=== PATIENT | female | born 1970 | race Caucasian/White ===

== ENCOUNTER 2019-07-25 17:39 | Emergency (ER) | payer BC, SELFPAY ==
[2019-07-25 17:54] VITALS: BP 172/119; PULSE 110; RESP 20; TEMP 37.1; O2SAT 99
--- NOTE | 2019-07-25 18:19 | ECG_ITS ---
Measurements Intervals [place] Rate: 104 P: 43 WA: 107 QRS: 34 QRSD: 102 T: 10 QT: 364 QTc: 481 Interpretive Statements SINUS TACHYCARDIA WITH SHORT WA INTERVAL ABNORMAL ECG Electronically Signed On 07-26-2019 8:41:25 EXTERMINATOR HELPER TERMITE by Praveen Reyna D.O.
--- NOTE | 2019-07-25 18:30 | PC.NURSE ---
Pt states she is not feeling well. States she is dizzy and nauseated at this time. Requesting to have blood sugar checked at this time.
[2019-07-25] MEDS: ACETAMINOPHEN 500 MG TABLET 1000 MG PO (18:32)
[2019-07-25 18:37] LABS: Basophils Absolute Auto 0.04 K/mm3 (0.00-0.10); Basophils Percent Auto 0.7 % (0.0-1.0); Eosinophils Absolute Auto 0.22 K/mm3 (0.02-0.50); Eosinophils Percent Auto 3.8 % (1.0-6.0); Hematocrit 40.5 % (35.0-49.0); Immature Granulocyte Absolute 0.01 K/mm3 (0.00-0.00); Immature Granulocyte Percent A 0.2 % (0.0-0.0); Lymphocytes Absolute Auto 2.37 K/mm3 (1.10-4.50); Lymphocytes Percent Auto 40.8 % (18.0-42.0); Mean Corpuscular HGB Conc 34.6 g/dL (32.0-36.0); Mean Corpuscular Hemoglobin 31.3 pg (27.0-31.0); Mean Corpuscular Volume 90.6 fL (78.0-102.0); Mean Platelet Volume 9.2 fl (9.2-11.8); Monocytes Absolute Auto 0.41 K/mm3 (0.10-0.90); Monocytes Percent Auto 7.1 % (2.0-11.0); Neutrophils Absolute Auto 2.8 K/mm3 (1.7-7.2); Neutrophils Percent Auto 47.4 % (50.0-70.0); Platelet Count Result 327 K/mm3 (150-420); Red Blood Count 4.47 M/mm3 (4.20-5.40); Red Cell Distribution Width 12.2 % (11.6-14.4); White Blood Count 5.8 K/mm3 (4.8-10.8)
--- NOTE | 2019-07-25 18:40 | PC.NURSE ---
Acctosin 63. Dr Ramirez aware. [place] juice provided to pt.
[2019-07-25 18:45] VITALS: BP 208/113; PULSE 107; RESP 20
[2019-07-25] MEDS: TRIAMTERENE 37.5 MG/HCTZ 25 MG (MAXZIDE) TABLET 1 TAB PO (18:48)
[2019-07-25 18:49] VITALS: PULSE 105
[2019-07-25] MEDS: METOPROLOL SUCCINATE EXT REL 50 MG TABCR 100 MG PO (18:49)
--- NOTE | 2019-07-25 18:50 | PC.NURSE ---
Pt states she is feeling better after drinking OJ. [place] and cottage cheese provided per Dr James blanco.
[2019-07-25 18:56] LABS: Anion Gap 16.5 mmol/L (7-16); Blood Urea Nitrogen 7 mg/dL (7-18); Calcium 9.6 mg/dL (8.5-10.1); Carbon Dioxide 26 mmol/L (21-32); Chloride 102 mmol/L (98-108); Estimated Glomerular Filt Rate > 60; Glucose 81 mg/dL (70-99); Osmolality Calculated 289 mOsm/kg (285-295); Potassium 3.5 mmol/L (3.5-5.1); Sodium 141 mmol/L (136-145); Troponin I < 0.02 ng/mL (0.00-0.056)
[2019-07-25 18:57] LABS: BNP 6.9 pg/mL (0-100)
--- NOTE | 2019-07-25 19:00 | PC.NURSE ---
Dr Ramirez aware of persistent elevated BP.
--- NOTE | 2019-07-25 19:14 | ED.GENADULT ---
HPI - General Adult General Chief complaint: Unspecified Stated complaint: sent from [facility] for blood pressure History of Present Illness HPI narrative: Lakia is a 49-year-old woman that was referred to the emergency department by her regular doctor for persistently elevated pressures. she has had blood pressures greater than 180/100 for the last 3 weeks despite taking lisinopril 20 mg b.i.d. and metoprolol 25 mg q.h.s. She does admit a couple episodes of near syncope and headache. However, she denies chest pain, shortness of breath, exercise intolerance, nausea, vomiting, as well as fevers and chills. her primary care doctor increased her metoprolol to 100 mg q.h.s. a and ordered triamterene/ HCTZ but thought still thought she should be evaluated in the emergency department. while here she does endorse the headache and feels run down. She reports that she regularly takes combined oral contraceptive pills as well as clear today. Related Data Home Medications Medication Instructions Recorded Confirmed amoxicillin-pot clavulanate 1 tablet PO BID 07/25/19 07/25/19 fluticasone furoate-vilanterol 1 inh INHALATION DAILY 07/25/19 07/25/19 [Breo Ellipta] insulin aspart U-100 [Novolog 4 unit SUBCUT TIDWM 07/25/19 07/25/19 Flexpen U-100 Insulin] insulin glargine [Lantus Solostar 44 unit SUBCUT HS 07/25/19 07/25/19 U-100 Insulin] lisinopril 20 mg PO BID 07/25/19 07/25/19 loratadine-pseudoephedrine 1 tablet PO DAILY 07/25/19 07/25/19 [Claritin-D 24 Hour] metoprolol succinate 100 mg PO HS 07/25/19 07/25/19 montelukast 10 mg PO DAILY 07/25/19 07/25/19 norethindrone-e.estradiol-iron 1 tablet PO DAILY 07/25/19 07/25/19 [Celestino Fe 06/25 (28)] pantoprazole 40 mg PO BID 07/25/19 07/25/19 triamterene-hydrochlorothiazid 1 cap PO DAILY 07/25/19 07/25/19 Allergies Allergy/AdvReac Type Severity Reaction Status Date / Time Penicillins Allergy Swelling Verified 07/25/19 18:24 of Lip/Tongue/Throat Review of Systems Constitutional: Constitutional: Reports as per HPI, Denies chills and Denies fever(s) Eyes: Eyes: Denies change in vision ENT: Denies sore throat Cardiovascular: Cardiovascular: Denies chest pain, Reports rapid heart rate and Denies radiating jaw, neck or arm pain Respiratory: Respiratory: Reports no additional respiratory complaints Gastrointestinal: Gastrointestinal: Reports no additional gastrointestinal complaints Genitourinary: Genitourinary: Reports no additional female genitourinary complaints Musculoskeletal: Musculoskeletal: Reports no additional musculoskeletal complaints Neurologic: Denies confusion, Reports headache(s) and Denies focal weakness Psychiatric: Psychiatric: Reports no additional psychiatric complaints [facility] Past Medical History Medical History (Updated 07/25/19 @ 20:32 by Luciano Ramirez DO) Diabetes Hypertension Social History Social History Gender identity (if verbalized by the patient): Female Exam Const: General: healthy appearing, no acute distress and alert; No confusion Nutritional Appearance: well nourished Orientation/consciousness: patient oriented x3 Limitations: No altered mental status HENMT: Head: normal to inspection Other: trouble cephalic, atraumatic Eyes: Conjunctivae: conjunctivae normal Pupils: Equal, round and reactive pupils present EOM: EOMs intact bilaterally Neck: Neck: normal visual inspection Resp: Effort & Inspection: normal respiratory effort Auscultation: clear to auscultation bilaterally Cardio: Heart sounds: no murmurs Other: tachycardia with regular rhythm, no lower extremity edema GI: GI Palp: Yes Soft to palpation and Yes Tenderness to palpation present (GI) Other: Normal bowel sounds Skin: General skin exam: normal color Rashes: no rashes Neuro: General: patient oriented x3 and moves all extremities Extrem: General: normal to inspection P
[2019-07-25 19:23] VITALS: BP 185/105; PULSE 98; RESP 20; O2SAT 100
--- NOTE | 2019-07-25 19:48 | PC.NURSE ---
Dr Ramirez at bedside.
--- NOTE | 2019-07-25 20:00 | PC.NURSE ---
Dr Ramirez remains aware of elevated BP.
[2019-07-25 20:03] VITALS: BP 181/106; PULSE 97; RESP 20; O2SAT 97
--- NOTE | 2019-07-25 20:12 | PC.NURSE ---
Headache 4/10 prior to giving Oxycodone as ordered for pain. Will continue to monitor.
[2019-07-25 20:36] VITALS: BP 183/105; PULSE 98; RESP 20; O2SAT 99
--- NOTE | 2019-07-25 20:37 | PC.NURSE ---
Dr Ramirez at bedside at this time.
[2019-07-27 00:57] LABS: Glucose Point of Care 63 (65-105)
== END 2019-07-25 20:46 | disposition home or self-care (01) ==
PROVIDERS: Emergency Provider Family Medicine; PCP Internal Medicine
DX: I16.0 Hypertensive urgency (principal)
CPT/HCPCS: 36415; 80048; 83880; 84484; 85025; 93005; 99282; 99284; A9270

== ENCOUNTER 2020-02-26 16:14 | Outpatient (CLI) | payer BC, SELFPAY ==
[2020-02-28 20:38] LABS: FSH 28.2 mIU/mL (***)
[2020-03-04 17:41] LABS: Estradiol, Ultrasensitive 42 pg/mL
== END 2020-02-26 16:15 | disposition home or self-care (01) ==
LOC: CHSLAB 16:17
PROVIDERS: PCP Internal Medicine; Visit Provider Obstetrics & Gynecology
DX: R61 Generalized hyperhidrosis (principal)
CPT/HCPCS: 36415; 82670; 83001

== ENCOUNTER 2020-03-29 08:41 | Outpatient (CLI) | payer BC, SELFPAY ==
[2020-03-29 09:01] LABS: Creatinine Urine 93.31 mg/dL (40-278); MALB Creatinine Ratio 13.9 mg/g (0-30); Microalbumin Urine Random < 13.0 mg/L
[2020-03-29 09:29] LABS: Hemoglobin A1C 7.6 % (<5.7)
[2020-03-29 10:07] LABS: Alanine Aminotransferase 31 U/L (14-59); Albumin Level 3.9 g/dL (3.4-5.0); Alkaline Phosphatase 100 U/L (46-116); Anion Gap 9 mmol/L (8-16); Aspartate Amino Transferase 20 U/L (15-37); Bilirubin,Total 0.7 mg/dL (0.00-1.00); Blood Urea Nitrogen 10 mg/dL (7-18); Calcium 9.2 mg/dL (8.5-10.1); Carbon Dioxide 28 mmol/L (21-32); Chloride 101 mmol/L (98-108); Cholesterol 210 mg/dL (0-200); Estimated Glomerular Filt Rate > 60; Glucose 90 mg/dL (70-99); HDL Direct 74 mg/dL (40-60); LDL Cholesterol Calculated 128 mg/dL (<130); Osmolality Calculated 285 mOsm/kg (285-295); Potassium 3.9 mmol/L (3.5-5.1); Sodium 138 mmol/L (136-145); Total Protein 7.1 g/dL (6.4-8.2); Triglycerides 39 mg/dL (0-150)
== END 2020-03-29 08:42 | disposition home or self-care (01) ==
LOC: CHSLAB 08:42
PROVIDERS: PCP Internal Medicine; Visit Provider Internal Medicine
DX: E78.2 Mixed hyperlipidemia (principal); E11.65 Type 2 diabetes mellitus with hyperglycemia
CPT/HCPCS: 36415; 80053; 80061; 82043; 83036

== ENCOUNTER 2020-04-15 10:48 | Outpatient (CLI) | payer BC, SELFPAY ==
[2020-04-16 14:12] LABS: SARS-CoV-2 RNA PCR Negative
== END 2020-04-15 10:49 | disposition home or self-care (01) ==
LOC: CHSLAB 10:54
PROVIDERS: PCP Internal Medicine; Visit Provider Internal Medicine
DX: Z20.828 Contact with and (suspected) exposure to other viral communicable diseases (principal)
CPT/HCPCS: 87635; C9803; U0003

== ENCOUNTER 2020-07-21 07:12 | Outpatient (CLI) | payer BC, SELFPAY ==
--- NOTE | ~2020-07-21 | MM_ITS ---
EXAMINATION: MM screening betsy BI w desirae HISTORY: Screening TECHNIQUE: Craniocaudal and mediolateral oblique 3-D tomosynthesis images were obtained and synthetic 2-D images were generated. CAD analysis was submitted and interpreted. COMPARISON: Comparison to multiple prior studies sequentially, with oldest reviewed study dated 12/20. BREAST PARENCHYMAL COMPOSITION: The breasts are heterogenously dense, which may obscure small masses FINDINGS: There is a new focal asymmetry in the lower inner quadrant of the left breast. The right br east is stable without evidence for malignancy. IMPRESSION: 1. Focal asymmetry lower inner quadrant of the left breast. 2. Additional mammographic views and possible breast ultrasound are recommended. BI-RADS Category 0: Incomplete: Needs additional imaging evaluation. Reviewed, dictated and finalized at location A. NG FLUID TENDER IMPRESSION: 1. Focal asymmetry lower inner quadrant of the left breast. 2. Additional mammographic views and possible breast ultrasound are recommended . BI-RADS Category 0: Incomplete: Needs additional imaging evaluation.
== END 2020-07-21 07:13 | disposition home or self-care (01) ==
LOC: CHSIMG 07:14
PROVIDERS: PCP Internal Medicine; Visit Provider Obstetrics & Gynecology
DX: Z12.31 Encounter for screening mammogram for malignant neoplasm of breast (principal)
CPT/HCPCS: 77063; 77067

== ENCOUNTER 2020-07-29 09:03 | Outpatient (CLI) | payer BC, SELFPAY ==
--- NOTE | ~2020-07-29 | MMUS_ITS ---
EXAMINATION: MM diagnostic betsy LT w desirae, US breast LT limited HISTORY: Left breast mass on screening mammogram TECHNIQUE: Additional 3-D tomosynthesis images of the left breast were performed and synthetic 2-D im ages were generated. CAD analysis was submitted and interpreted. High resolution limited left breast ultrasound was performed. COMPARISON: 05/20/2021, 06/20/2017, 03/18/2016 FINDINGS: MAMMOGRAPHIC FINDINGS: There is a 10 mm obscured, oval, equal density mass in the posterior third of inner breast at the 9:0 0 location 10 cm from the nipple. No suspicious calcification or architectural distortion are identif ied. ULTRASOUND: There is a 6 mm x 2 mm oval, circumscribed, parallel, hypoechoic mass with no posterior features or i nternal vascularity at the 8:00 location 6 cm from the nipple. IMPRESSION: 1. Probably benign left breast mass. 2. Recommend 6 month follow-up left diagnostic mammogram and ultrasound. BI-RADS category 3, probably benign findings. Reviewed, dictated and finalized at location A. AND FRAMES PRESCRIPTION CLERK IMPRESSION: 1. Probably benign left breast mass. 2. Recommend 6 month follow-up left diagnostic mammogram and ultrasound. BI-RADS category 3, probably benign findings.
== END 2020-07-29 09:04 | disposition home or self-care (01) ==
PROVIDERS: PCP Internal Medicine; Visit Provider Obstetrics & Gynecology
DX: R92.8 Other abnormal and inconclusive findings on diagnostic imaging of breast (principal)
CPT/HCPCS: 76642; 77061; 77065; G0279

== ENCOUNTER 2020-08-13 16:42 | Outpatient (CLI) | payer BC, SELFPAY ==
--- NOTE | ~2020-08-13 | XR_ITS ---
[XR ribs LT 2V ] INDICATION: Left lower rib pain and swelling TECHNIQUE: Frontal projection of the upper left ribs, frontal projection of the lower left ribs, obli que projection of all the left ribs, frontal inspiratory chest x-ray for interpretation. FINDINGS: There are no displaced rib fractures identified. There are no soft tissue abnormality see n. The lungs are clear. IMPRESSION: 1:No displaced rib fractures. Reviewed, dictated and finalized at location A. L PREPAREDNESS OFFICER
== END 2020-08-13 16:43 | disposition home or self-care (01) ==
LOC: CHSLAB 16:43
PROVIDERS: PCP Internal Medicine; Visit Provider Internal Medicine
DX: R07.81 Pleurodynia (principal); R79.89 Other specified abnormal findings of blood chemistry
CPT/HCPCS: 71100

== ENCOUNTER 2020-08-15 14:22 | Emergency (ER) | payer BC, SELFPAY ==
--- NOTE | ~2020-08-15 | CT_ITS ---
EXAMINATION: CTA chest PE abdomen pel DATE: 08/15/2020 17:14 CLIENT EXPERIENCE ADMINISTRATOR INDICATION: Possible malignancy. Left rib pain. Nausea. Abdominal fullness. History of lumbar surgery . TECHNIQUE: Computed tomographic angiography (CTA) of the chest, abdomen, and pelvis was performed wit hout and with 100 mL Omnipaque-350 intravenous contrast. The dose-length product was 760.77 mGy-cm. M aximum intensity projection 3D-reconstructions of the aorta and other arteries were constructed by sandra adorno technologist on a separate workstation. Automated exposure control and iterative reconstruction xu hnique were employed. COMPARISON: CT abdomen dated 03/29/2019 FINDINGS: CHEST CTA: Study is technically adequate without evidence for pulmonary embolism. No evidence for aortic aneurys m or dissection. No thoracic lymphadenopathy. No endobronchial lesions. No pneumothorax. No suspiciou s pulmonary nodules or masses. ABDOMEN AND PELVIS CTA: The liver, spleen, pancreas, adrenal glands are unremarkable. Small low-density lesions in both kidne ys, likely benign cysts. No lymphadenopathy. No significant vascular abnormality. No lymphadenopathy. Gallbladder is present. Nonobstructive bowel gas pattern. Normal appendix. No abnormal pelvic masses or fluid collections. No free air or free fluid. No evidence for aortic aneurysm or dissection. The celiac axis, SMA and renal arteries are widely patent. Tiny fat-containing umbilical hernia. IMPRESSION: 1. No acute abnormality of the chest, abdomen or pelvis. No findings to account for patient's symptom s. Reviewed, dictated and finalized at location A. NT EXPERIENCE ADMINISTRATOR IMPRESSION: 1. No acute abnormality of the chest, abdomen or pelvis. No findings to account for patient's symptoms.
[2020-08-15 14:25] VITALS: BP 170/93; PULSE 91; RESP 14; TEMP 36.6; O2SAT 100
[2020-08-15 15:56] LABS: Basophils Absolute Auto 0.05 K/mm3 (0.00-0.10); Basophils Percent Auto 0.8 % (0.0-1.0); Eosinophils Absolute Auto 0.19 K/mm3 (0.02-0.50); Eosinophils Percent Auto 2.9 % (1.0-6.0); Hemoglobin 13.8 g/dL (12.0-15.0); Immature Granulocyte Absolute 0.02 K/mm3 (0.00-0.00); Immature Granulocyte Percent A 0.3 % (0.0-0.0); Lymphocytes Absolute Auto 2.38 K/mm3 (1.10-4.50); Lymphocytes Percent Auto 36.6 % (18.0-42.0); Mean Corpuscular HGB Conc 33.7 g/dL (32.0-36.0); Mean Corpuscular Hemoglobin 31.4 pg (27.0-31.0); Mean Corpuscular Volume 93.2 fL (78.0-102.0); Mean Platelet Volume 9.2 fl (9.2-11.8); Monocytes Absolute Auto 0.51 K/mm3 (0.10-0.90); Monocytes Percent Auto 7.8 % (2.0-11.0); Neutrophils Absolute Auto 3.4 K/mm3 (1.7-7.2); Neutrophils Percent Auto 51.6 % (50.0-70.0); Platelet Count Result 321 K/mm3 (150-420); Red Cell Distribution Width 12.5 % (11.6-14.4); White Blood Count 6.5 K/mm3 (4.8-10.8)
[2020-08-15 15:57] LABS: Add Urine Microscopic? NO; Appearance Urine Clear (Clear); Bilirubin Urine Negative (Negative); Blood Urine Negative (Negative); Color Urine Yellow (Yellow); Glucose Urine UA Negative (Negative); Ketones Urine Negative (Negative); Leukocyte Esterase Ur Negative (Negative); Nitrate Urine Negative (Negative); Protein Urine Negative (Negative); Urobilinogen Urine 0.2 mg/dL (0.2-1.0); pH Urine 5.5 (5.0-8.0)
[2020-08-15 16:11] LABS: Alanine Aminotransferase 28 U/L (14-59); Albumin Level 4.1 g/dL (3.4-5.0); Alkaline Phosphatase 87 U/L (46-116); Anion Gap 10 mmol/L (8-16); Aspartate Amino Transferase 17 U/L (15-37); Bilirubin,Total 0.8 mg/dL (0.00-1.00); Blood Urea Nitrogen 9 mg/dL (7-18); Calcium 9.8 mg/dL (8.5-10.1); Carbon Dioxide 29 mmol/L (21-32); Chloride 99 mmol/L (98-108); Estimated CRCL calculation 64 ml/min; Estimated Glomerular Filt Rate > 60; Glucose 84 mg/dL (70-99); Osmolality Calculated 283 mOsm/kg (285-295); Potassium 3.6 mmol/L (3.5-5.1); Sodium 138 mmol/L (136-145); Total Protein 7.9 g/dL (6.4-8.2)
[2020-08-15 16:16] LABS: Lactic Acid Reflex 0.5 mmol/L (0.4-2.0)
--- NOTE | 2020-08-15 17:14 | ED.ABDPAIN ---
HPI - Abdominal Pain General Chief Complaint: Abdominal Pain Stated Complaint: abd pain and pressure pusing ribs out Time Seen by Provider: 08/15/20 14:50 Source: patient and family Mode of arrival: ambulatory Limitations: no limitations History of Present Illness HPI narrative: Patient states ribs are displaced on the left at the base of the lung. She has had increasing pain on the lower left anterior ribs over the past few days she says. These ribs have been tender to touch, and have been associated with sharp pain at times there locally. Pain has been moderately severe to severe, and typically does not last lopng but is rather sharp and fleeting. MD elicited complaint: abdominal pain Pertinent past history: other (DM type I patient says. ) Onset (ago): month(s) Pain Consistency: intermittent Location: diffuse Severity: moderate Pain scale (0-10): 5 Quality: stabbing Radiation: RUQ Migration to: other (diffuse) Exacerbating factors: eating Relieving factors: bowel movement and other (voinding) Associated symptoms: nausea Treatments prior to arrival: other (Tylenol) Related Data Home Medications Medication Instructions Recorded Confirmed fluticasone furoate-vilanterol 1 inh INHALATION DAILY 07/25/19 08/15/20 [Breo Ellipta] insulin aspart U-100 [Novolog 4 unit SUBCUT TIDWM 07/25/19 08/15/20 Flexpen U-100 Insulin] insulin glargine [Lantus Solostar 44 unit SUBCUT HS 07/25/19 08/15/20 U-100 Insulin] lisinopril 20 mg PO BID 07/25/19 08/15/20 loratadine-pseudoephedrine 1 tablet PO DAILY 07/25/19 08/15/20 [Claritin-D 24 Hour] metoprolol succinate 100 mg PO HS 07/25/19 08/15/20 montelukast 10 mg PO DAILY 07/25/19 08/15/20 norethindrone-e.estradiol-iron 1 tablet PO DAILY 07/25/19 08/15/20 [Celestino Fe 06/25 ()] pantoprazole 40 mg PO BID 07/25/19 08/15/20 triamterene-hydrochlorothiazid 1 cap PO DAILY 07/25/19 08/15/20 Allergies Allergy/AdvReac Type Severity Reaction Status Date / Time Penicillins Allergy Swelling Verified 10/16/19 08:48 of Lip/Tongue/Throat Review of Systems Constitutional: Constitutional: Reports no additional constitutional complaints Eyes: Eyes: Reports no additional eye complaints ENT: Reports system reviewed and no additional complaints, except as documented Cardiovascular: Cardiovascular: Reports no additional cardiovascular complaints Respiratory: Respiratory: Reports no additional respiratory complaints Gastrointestinal: Gastrointestinal: Reports no additional gastrointestinal complaints Genitourinary: Genitourinary: Reports no additional female genitourinary complaints Musculoskeletal: Musculoskeletal: Reports no additional musculoskeletal complaints Integumentary/Breasts: Skin/Breast: Reports system reviewed and no additional complaints, except as docu Neurologic: Reports system reviewed and no additional complaints, except as documented Psychiatric: Psychiatric: Reports no additional psychiatric complaints Endocrine: Endocrine: Reports no additional endocrine complaints Hematologic/Lymphatic: Hematologic/Lymphatic: Reports no additional hematologic/lymphatic complaints Allergic/Immunologic: Allergic/Immunologic: Reports no additional allergic/immunologic complaints PMFSH Past Medical History Medical History Carpal tunnel syndrome delivery affecting delivery delivered Diabetes Hypertension Post endometrial ablation syndrome Family History Family History (Updated 08/16/20 @ 02:02 by Roger Cuellar MD) Father Cerebrovascular accident Mother Hypertension Social History Social History (Updated 08/16/20 @ 02:02 by Roger Cuellar MD) Smoking status: Never smoker Alcohol intake: never Gender identity (if verbalized by the patient): Female Exam Const: General: no acute distress Orientation/consciousness: patient oriented x3 HENMT: Head: normal to inspection
[2020-08-15 17:42] VITALS: BP 160/96; RESP 14; O2SAT 98
== END 2020-08-15 17:45 | disposition home or self-care (01) ==
PROVIDERS: Emergency Provider Emergency Medicine; PCP Internal Medicine
DX: R07.89 Other chest pain (principal)
CPT/HCPCS: 36415; 71275; 74177; 80053; 81003; 83605; 85025; 99282; 99284; Q9967

== ENCOUNTER 2021-03-27 08:43 | Outpatient (CLI) | payer BC, SELFPAY ==
--- NOTE | ~2021-03-27 | MMUS_ITS ---
EXAMINATION: MM diagnostic betsy LT w desirae, US breast LT limited HISTORY: Six-month follow-up of probably benign 8:00 left breast mass TECHNIQUE: ML, MLO and craniocaudal 3-D tomosynthesis images of the left breast were performed and sy nthetic 2-D images were generated. CAD analysis was submitted and interpreted. High resolution limite d targeted 8:00-9:00 left breast ultrasound was performed. COMPARISON: July 29, 2020 diagnostic left mammogram and limited left breast ultrasound July 21, 2020 bilateral digital screening mammogram BREAST PARENCHYMAL COMPOSITION: The breasts are heterogeneously dense, which may obscure small masses . FINDINGS: MAMMOGRAPHIC FINDINGS: There is no significant change of focal circumscribed asymmetry reported in posterior lower inner estela drant of left breast on July 21, 2020 screening mammogram ULTRASOUND: 8:00 6 cm from nipple: Parallel circumscribed hypoechoic 1.8 x 3.8 x 4 mm lesion without internal vas cularity or posterior shadowing, likely benign. Previous July 29, 2020 ultrasound showed a 4.5 x 1.6 x 5.9 mm lesion at 8:00 6 cm from the nipple. 9:00 10 cm from nipple and 8:00 8 cm from nipple:: There is some ill-defined shadowing without appare nt discrete mass. Six-month diagnostic left mammogram and ultrasound follow-up are recommended. IMPRESSION: 1. Probably benign findings 2. 6 month diagnostic left mammogram and left breast ultrasound follow-up are recommended. BI-RADS category 3, probably benign findings. Reviewed, dictated and finalized at location A. IMPRESSION: 1. Probably benign findings 2. 6 month diagnostic left mammogram and left breast ultrasound follow-up are r ecommended. BI-RADS category 3, probably benign findings.
== END 2021-03-27 08:44 | disposition home or self-care (01) ==
LOC: CHSIMG 08:44
PROVIDERS: PCP Internal Medicine; Visit Provider Obstetrics & Gynecology
DX: R92.8 Other abnormal and inconclusive findings on diagnostic imaging of breast (principal)
CPT/HCPCS: 76642; 77061; 77065; G0279

== ENCOUNTER 2021-09-01 15:51 | Outpatient (RCR) | payer BC, SELFPAY ==
--- NOTE | 2021-09-01 16:58 | PTOPEVAL ---
Thank you for referring Lakia [place] to [facility] [place].? The patient is scheduled to be seen for therapy? ____x/week for ___ weeks. Please review, sign, date and return this plan of care IVORY. I agree with and certify that the following plan of care is medically necessary. Referring Physician Date Admitting Provider: Attending Provider: Sandra Ko MD Referring Provider: *PT Outpatient Evaluation Start: 09/01/21 16:02 Freq: Status: Active Protocol: Document 09/01/21 16:04 ELA (Rec: 09/01/21 16:53 [id number]) Therapy Assessment Status Assessment Status Assessment Status Evaluation Outpatient Past Medical History Cardiovascular History Hx Hypertension Yes Respiratory History Hx Chronic Obstructive Pulmonary Disease Yes (COPD) Gastrointestinal History Hx Gastroesophageal Reflux Disease Yes Musculoskeletal History Hx Spinal Surgery Yes Endocrine History Hx Diabetes Yes: T1 Reproductive History Hx Post Menopausal Yes Evaluation Information Problem Diagnosis BPPV L and acute, and lower back pain Onset 07/07/21 Additional Evaluation Detail oswestry = 58% functionally declined Subjective Information patient reports she had cauda Query Text:As Reported By Patient/ charlaina a few years ago. she Family reports she had L5/S1 fusion. 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 she reports she continues to ahve lower back pain, and also is complicated by BPPV to the L side. she reports her most recent lower back pain has been going on since 07/07/21 when she had a tooth issue. she reports she was layed over on her R side. she reports she was in severe pain when getting up from this, and has increased pain with lifting, sitting, and driving. she reports lumbar support and walking decreases her pain. she reports she has pain down the R LE to the ankle. she reports she does have history of other issues in the R LE. Prior Level of Function Comments Additional Prior Level of Function prior to july, no Comments
== END 2021-10-01 14:07 | disposition home or self-care (01) ==
LOC: CHSPT 15:51
PROVIDERS: PCP Internal Medicine; Visit Provider Internal Medicine
DX: H81.10 Benign paroxysmal vertigo, unspecified ear (principal); M54.50 Low back pain, unspecified
CPT/HCPCS: 97014; 97110; 97140; 97161; 97530; G0283

== ENCOUNTER 2022-01-20 18:05 | Outpatient (CLI) | payer BC, SELFPAY ==
--- NOTE | ~2022-01-20 | XR_ITS ---
EXAMINATION: XR shoulder LT min 2V DATE: 01/20/2022 18:23 INDICATION: Left shoulder pain. TECHNIQUE: 4 views of left shoulder were obtained. COMPARISON: None. FINDINGS: Bone alignment is normal. No fracture. There is mild osteoarthritis of glenohumeral joint a nd acromioclavicular joint. IMPRESSION: 1. Mild polyarticular osteoarthritis. Reviewed, dictated and finalized at location A.
--- NOTE | ~2022-01-20 | XR_ITS ---
EXAMINATION: XR shoulder RT min 2V DATE: 01/20/2022 18:23 INDICATION: Right shoulder pain. TECHNIQUE: 4 views of right shoulder were obtained. COMPARISON: None. FINDINGS: Bone alignment is normal. No fracture. Glenohumeral joint is normal. There is mild osteoart hritis of acromioclavicular joint. There is calcific tendinitis of the rotator cuff. IMPRESSION: 1. Mild osteoarthritis of acromioclavicular joint. 2. Calcific tendinitis of the rotator cuff. Reviewed, dictated and finalized at location A.
== END 2022-01-20 18:06 | disposition home or self-care (01) ==
LOC: CHSIMG 18:07
PROVIDERS: PCP Internal Medicine; Visit Provider Internal Medicine
DX: M25.512 Pain in left shoulder (principal); M25.511 Pain in right shoulder
CPT/HCPCS: 73030

== ENCOUNTER 2022-10-11 16:31 | Outpatient (CLI) | payer BC, SELFPAY | END 2022-10-11 16:32 | disposition home or self-care (01) | LOC: CHSIMG 16:33 | PROVIDERS: PCP Internal Medicine; Visit Provider Internal Medicine | DX: M25.571 Pain in right ankle and joints of right foot (principal) | CPT/HCPCS: 73610 ==

== ENCOUNTER 2022-11-06 18:00 | Emergency (ER) | payer BC, SELFPAY ==
--- NOTE | ~2022-11-06 | CT_ITS ---
Noncontrast CT scan of the lumbar spine CLINICAL HISTORY: Back injury TECHNIQUE: Axial noncontrast imaging of the lumbar spine was performed. Sagittal and coronal reformat tamir images were constructed. Dose reduction technique was used on this scan by utilizing automated ex posure control and iterative reconstruction technique. The dose-length product (DLP) was 356.53 mGy-c m. FINDINGS: No fracture or subluxation identified. There is mild to moderate degenerative disc narrowin g at L5-S1. Remaining disc spaces are preserved. Vertebral bodies maintain normal height and alignmen t. There is suggestion of lytic lesion involving the S2 vertebral body. At L1-L2, there is no disc bulge or herniation evident. No definite spinal canal stenosis or neural f oraminal narrowing. At L2-L3, no definite disc bulge or herniation seen. No spinal canal stenosis or definite neural fora ruddy narrowing. At L3-L4, there is probable mild disc bulge with mild facet arthropathy. No definite central canal st enosis. There is probable moderate left neural foraminal narrowing and mild right neural foraminal na rrowing. At L4-L5, there is minimal disc bulge with mild facet arthropathy. Probable mild central canal stenos is. There is moderate bilateral neural foraminal narrowing, left worse than right. At L5-S1, there is minimal disc bulge. No spinal canal stenosis. Probable mild to moderate bilateral neural foraminal narrowing. Impression: Suggestion of lytic lesion involving the S2 vertebral body. This is unchanged as compared to prior ex am dated 08/15/2020. Correlate with any relevant clinical history. Consider MR imaging as indicated. No acute fracture or subluxation otherwise. Mild degenerative spondylosis, as above. Reviewed, dictated and finalized at location M. Impression: Suggestion of lytic lesion involving the S2 vertebral body. This is unchanged a s compared to prior exam dated 08/15/2020. Correlate with any relevant clinical history. Consider MR imaging as indicated. No acute fracture or subluxation otherwise. Mild degenerative spondylosis, as above.
--- NOTE | ~2022-11-06 | CT_ITS ---
CT of the Pelvis: Indication: Status post fall, history of cauda equina syndrome Technique: 2.5 mm axial scans were obtained through the pelvis without oral or IV contrast administr ation. Dose reduction technique was used on this scan by utilizing automated exposure control and ite rative reconstruction technique. The dose-length product (DLP) was 249.84 mGy-cm. COMPARISON: 08/15/2020 Findings: Urinary bladder unremarkable. No adnexal mass evident. No ascites. Visualized bowel loops a re unremarkable. No pelvic lymphadenopathy seen. There is an apparent lytic/lucent area involving the S2 vertebral body, unchanged from prior exam. Re maining visualized osseous structures appear unremarkable. Impression: No acute abnormality identified. Suggestion of lytic/lucent area of the S2 vertebral body, unchanged since 08/15/2020. Correlate with a ny relevant clinical history. Consider MR as indicated. Reviewed, dictated and finalized at [facility]. Impression: No acute abnormality identified. Suggestion of lytic/lucent area of the S2 vertebral body, unchanged since 2020. Correlate with any relevant clinical history. Consider MR as indicated.
[2022-11-06 18:00] VITALS: BP 168/98; PULSE 101; RESP 16; TEMP 37.5; O2SAT 96
--- NOTE | 2022-11-06 19:03 | PC.NURSE ---
Assumed pt care from JAYNE Killian at this time. Agree with assessment. Awaiting imaging results at this time.
--- NOTE | 2022-11-06 19:14 | ED.FALL ---
HPI - Fall General Chief Complaint: Fall Stated Complaint: numbness in pelvis after a fall Time Seen by Provider: 11/06/22 18:06 Source: patient Mode of arrival: ambulatory Limitations: no limitations History of Present Illness HPI Narrative: this is a 52-year-old female with a history of low back pain with surgery, also patient with a history of cauda equinus syndrome. The patient fell earlier this afternoon slipped on the wet concrete surface onto her tailbone causing some numbness and tingling in the left pelvic area. No other injuries no loss of consciousness. The patient is aware of a cauda equina syndrome symptoms and has no loss of bowel or bladder function there is some saddle numbness and left pelvic area numbness with no weakness in her lower extremities. MD complaint: fall Onset (ago): hour(s) Fall from: standing Place fall occurred: home Loss of consciousness: none Severity: mild Related Data Home Medications Medication Instructions Recorded Confirmed fluticasone furoate 200 1 inh inhalation DAILY 07/25/19 11/06/22 mcg-vilanterol 25 mcg/dose inhalation powder (Breo Ellipta) insulin aspart U-100 100 unit/mL 4 unit subcut TIDWM 07/25/19 11/06/22 (3 mL) subcutaneous pen (Novolog FlexPen U-100 Insulin aspart) insulin glargine 100 unit/mL (3 44 unit subcut HS 07/25/19 11/06/22 mL) subcutaneous pen (Lantus Solostar U-100 Insulin) lisinopril 20 mg tablet 20 mg PO BID 07/25/19 11/06/22 metoprolol succinate 100 mg 100 mg PO HS 07/25/19 11/06/22 tablet,extended release 24 hr montelukast 10 mg tablet 10 mg PO DAILY 07/25/19 11/06/22 triamterene 37.5 1 cap PO DAILY 07/25/19 11/06/22 mg-hydrochlorothiazide 25 mg capsule Allergies Allergy/AdvReac Type Severity Reaction Status Date / Time NSAIDS (Non-Steroidal Allergy Intermediate Difficulty Verified 11/06/22 18:09 Anti-Inflamma Breathing tizanidine Allergy Unknown Hypotension Verified 11/06/22 18:09 Penicillins Allergy Swelling Verified 11/06/22 18:09 of Lip/Tongue/Throat adhesive AdvReac Mild Rash Verified 11/06/22 18:09 Review of Systems Review of Systems: All systems reviewed & are unremarkable except as noted in HPI and below PMFSH Past Medical History Medical History Carpal tunnel syndrome delivery affecting delivery delivered Diabetes Heart palpitations Hypertension Left breast mass Outcome of delivery, single stillborn Pneumonia Post endometrial ablation syndrome Stroke (~02/2019) Surgical History Surgical History History of back surgery (~01/2017) History of bilateral salpingectomy (12/20/19) History of x3 History of carpal tunnel surgery (03/02/13) History of dilation and curettage 12/12/14 hscope d&c--menometrorrhagia 12/20/19 hscope d&c/endo ablation/b lscope salpingectomy--menometrorrhagia/dysmenorrhea History of endometrial ablation 12/20/19 hscope d&c/endo ablation/b lscope salpingectomy--menometrorrhagia/dysmenorrhea History of removal of cyst 1984 ganglion cyst from ankle 1997 fatty tumor from back 1995 ganglion cyst from ankle Family History Family History Father Cerebrovascular accident Heart disease Mother Hypertension Alcohol abuse Social History Social History Smoking status: Never smoker Alcohol intake: never Substance use: never Substance use type: does not use Living arrangements: other Additional living arrangements comments: Occupation/Education: occupation Additional occupation/education comments: teacher Gender identity (if verbalized by the patient): Female Sexual Orientation (if Verbalized by the Patient): Straight or Heterosexual Exam Const: General: healthy appearing Nutr
[2022-11-06 19:19] VITALS: BP 147/92; PULSE 84; RESP 16; TEMP 37.3; O2SAT 97
== END 2022-11-06 19:29 | disposition home or self-care (01) ==
PROVIDERS: Emergency Provider Emergency Medicine; PCP Internal Medicine
DX: M54.10 Radiculopathy, site unspecified (principal); E11.9 Type 2 diabetes mellitus without complications; I10 Essential (primary) hypertension; Z79.4 Long term (current) use of insulin; W01.0XXA Fall on same level from slipping, tripping and stumbling without subsequent striking against object, initial encounter; Y92.009 Unspecified place in unspecified non-institutional (private) residence as the place of occurrence of the external cause
CPT/HCPCS: 72131; 72192; 99284

== ENCOUNTER 2023-01-13 09:11 | Outpatient (CLI) | payer BC, SELFPAY ==
--- NOTE | ~2023-01-13 | MMUS_ITS ---
EXAMINATION: MM diagnostic betsy BI w desirae, US breast LT limited HISTORY: Six-month follow-up for probably benign left breast mass TECHNIQUE: Craniocaudal, mediolateral, and mediolateral oblique 3-D tomosynthesis images of the breas ts were performed and synthetic 2-D images were generated. CAD analysis was submitted and interpreted . High resolution limited left breast ultrasound was performed. COMPARISON: 03/27/2021, 07/29/2020, 07/21/2020 BREAST PARENCHYMAL COMPOSITION: There are scattered areas of fibroglandular density. FINDINGS: MAMMOGRAPHIC FINDINGS: Left breast: A 12 mm round, obscured, low density mass in the posterior third of the inner left breas t at the 8:00 location, 9 cm from the nipple is not significantly changed. No suspicious mass, calcif ication, or architectural distortion are identified. Right breast: No suspicious mass, calcification, or architectural distortion are identified to sugges t malignancy. There has been no suspicious interval change. ULTRASOUND: A 9 mm x 3 mm oval, circumscribed, parallel, hypoechoic mass with no posterior features or internal v ascularity at 8:00 location, 10 cm from the nipple is stable. A 5 mm hypoechoic area without distinct margins at the 9:00 location, 6 cm from the nipple is stable. IMPRESSION: 1. No mammographic or sonographic evidence of malignancy. 2. Recommend routine screening mammography in one year. BI-RADS Category 2: Benign finding(s). Reviewed, dictated and finalized at location A. IMPRESSION: 1. No mammographic or sonographic evidence of malignancy. 2. Recommend routine screening mammography in one year. BI-RADS Category 2: Benign finding(s).
== END 2023-01-13 09:12 | disposition home or self-care (01) ==
LOC: CHSIMG 09:14
PROVIDERS: PCP Internal Medicine; Visit Provider Obstetrics & Gynecology
DX: N63.20 Unspecified lump in the left breast, unspecified quadrant (principal)
CPT/HCPCS: 76642; 77062; 77066; G0279

== ENCOUNTER 2023-08-12 16:31 | Outpatient (CLI) | payer BC, SELFPAY ==
--- NOTE | ~2023-08-12 | XR_ITS ---
EXAMINATION: XR ankle RT min 3V, XR foot RT min 3V DATE: 08/12/2023 16:58 INDICATION: Right foot and ankle pain TECHNIQUE: 1. Weightbearing anteroposterior, mortise, and lateral view of the right ankle were obtained. 2. Weightbearing dorsal plantar, oblique and lateral views of the right foot were obtained. COMPARISON: None. FINDINGS: Alignment of the right foot and ankle is normal. No fracture or osteochondral lesion. Mild polyarticu lar osteoarthritis at multiple joints in the right foot no erosions to suggest inflammatory arthritis . Small Achilles calcaneal spur. No ankle joint effusion. The soft tissues are unremarkable. IMPRESSION: 1. Mild polyarticular osteoarthritis throughout the right foot. Reviewed, dictated and finalized at location A. ECT PLANNER IMPRESSION: 1. Mild polyarticular osteoarthritis throughout the right foot.
== END 2023-08-12 16:32 | disposition home or self-care (01) ==
LOC: CHSIMG 16:37
PROVIDERS: PCP Internal Medicine; Visit Provider Orthopaedic Surgery
DX: M25.571 Pain in right ankle and joints of right foot (principal); M19.071 Primary osteoarthritis, right ankle and foot
CPT/HCPCS: 73610; 73630

== ENCOUNTER 2024-03-19 16:23 | Outpatient (CLI) | payer BC, SELFPAY ==
--- NOTE | ~2024-03-19 | XR_ITS ---
EXAMINATION: XR knee RT 3V DATE: 03/19/2024 16:43 INDICATION: Right knee pain TECHNIQUE: AP, lateral and sunrise views of the right knee were obtained COMPARISON: None. FINDINGS: Alignment is normal. No fracture. Joint spaces are normal. No joint effusion/layering lipohemarthros is. Soft tissues are unremarkable. IMPRESSION: 1. Negative right knee radiographs. Reviewed, dictated and finalized at location A.
== END 2024-03-19 16:24 | disposition home or self-care (01) ==
PROVIDERS: PCP Internal Medicine; Visit Provider Internal Medicine
DX: M25.561 Pain in right knee (principal)
CPT/HCPCS: 73562

== ENCOUNTER 2024-07-13 08:22 | Outpatient (CLI) | payer BC, SELFPAY ==
--- OUTSIDE RECORDS SUMMARY | 2024-07-13 08:35 | XMS_ITS | Referral Summary ---
Author Organization [facility] [address] [facility] Address [address] [place] [address] Care Team Providers Care Marketing Automation Analyst Name Role Phone Sandra Ko MD Primary Care Provider [phone] Sandra Ko MD Unavailable [phone] Miscellaneous, Not In File Unavailable Unava ilable Jc Almaguer DO Unavailable [phone] Allergies Active Allergy Reactions Criticality Noted Date Comments Adhesive Tape-Silicones Rash Medium Coconut Shortness of breath High Dog Dander Shortness of breath High Hydrocodone-Acetaminop hen Other (See comments) Low Sob Lisinopril Swelling Medium 01/25/2024 Naproxen Angioedema High Nsaids (Non-Steroidal Anti-Inflammatory Drug) Shortness of breath High 02/08/2020 Penicillins Rash Medium Shellfish Containing Products Swelling Medium Terazosin Other (See comments) Low 08/17/2019 Dropped pt bp and passed out Tramadol Hypotension High Tree Nut Angioedema High Medications montelukast (SINGULAIR) 10 mg tabletIndicatio ns:Maintenance Therapy for Asthma Take 1 tablet (10 mg total) by mouth every morning Active triamterene-hyd roCHLOROthiazid e (triamterene-hy droCHLOROthiazi de) 37.5-25 mg per tablet/capsule Take 1 tablet/capsule by mouth hoist operator before breakfast Active metoprolol XL (TOPROL-XL) 25 mg 24 hr tablet Take 2 tablets (50 mg total) by mouth nightly Active estradiol-noret hindrone (ACTIVELLA) 1-0.5 mg per tablet Take 1 tablet by mouth every evening 1 Active Breo Ellipta 200-25 mcg/dose diskus inhaler Inhale 1 puff every morning 1 Active acetaminophen (TYLENOL) 325 mg tablet Take 2 tablets (650 mg total) by mouth every 4 (four) hours as needed for pain 2 Active Additional Information Patient not taking.Informant: Self, Reported on 01/25/2024 insulin aspart (NovoLOG) 100 unit/mL (3 mL) pen for injectionIndica tions:type 2 diabetes mellitus Inject 8 Units under the skin 3 (three) times a day with meals 3-10 units q meal Active fluticasone propionate (FLONASE) 50 mcg/actuation nasal spray Administer 2 sprays into each nostril every morning Active albuterol HFA (PROVENTIL HFA,VENTOLIN HFA,PROAIR HFA) 90 mcg/actuation inhaler Inhale 2 puffs every 6 (six) hours as needed for wheezing Active acetaminophen-a spirin-caffeine (EXCEDRIN MIGRAINE) 250-250-65 mg per tabletIndicatio ns:Pain Take 2 tablets by mouth as needed for headaches Active insulin glargine 100 unit/mL (3 mL) pen for injectionIndica tions:Type 2 diabetes mellitus without complication, with long-term current use of insulin ([facility]/HCC) ([facility]) Inject 36 Units under the skin nightly 4 Active Active Problems Problem Noted Date Diagnosed Date Intervertebral disc disorder with radiculopathy of lumbar region 06/18/2022 Overview (06/18/2022): Added automatically from request for surgery [id number] Carpal tunnel syndrome 06/17/2022 Current tear of medial cartilage or meniscus of knee 06/17/2022 Cyst of ovary 06/17/2022 Enlarged uterus 06/17/2022 Right lower quadrant pain 06/17/2022 Lumbar stenosis with neurogenic claudication Foot-drop 11/22/2016 Abnormal cardiovascular stress test 04/23/2016 Chest pain 04/11/2016 Shortness of breath at rest 04/06/2016 Pain of lower extremity 01/05/2016 Disorder of perineum 01/05/2016 Pain of right lower extremity 01/05/2016 Difficulty in urination 01/05/2016 Lumbago 01/05/2016 Herniated lumbar intervertebral disc 01/05/2016 Surgical follow-up care 10/27/2015 Palpitations 10/11/2015 Hyperlipidemia 08/01/2014 Benign essential hypertension 08/01/2014 Diabetes mellitus 08/01/2014 Syncope 07/29/2014 Immunizations Name Administration Dates Next Due Influenza, Quadrivalent, Split, Intramuscular Influenza, Trivalent, Preservative Free, Intramu scular 05/06/2017,04/06/2016 Moderna SARS-CoV-2 Monovalent Vaccination (12+ Y RS) 09/05/2020,08/04/2020 Pneumococcal Conjugate PCV 13 07/19/2018 Pneumococcal Polysaccharide PPV23 12/20/2017,06/2009 Tdap 08/04/2012 Social History Tobacco Use Types Packs/Day Years Used Date Smoking Tobacco: Never Passive Smoke Exposure: Never Smokeless Tobacco: Never Tobacco Cessation:Counseling Given: Not Answered AUDIT-C Answer Date Recorded Q1: How often do you have a drink containing alc ohol? 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 Gender Identity Female 02/05/2020 11:58 AM CDT Sexual Orientation Straight 02/05/2020 11 :58 AM CDT Last Filed Vital Signs Vital Sign Reading Time Taken Comments Blood Pressure 160/86 02/09/2024 1:25 PM CDT Pulse 83 02/09/2024 1:25 PM CDT Temperature 36.5 C (97.7 F) 02/09/2024 12:29 PM CDT Respiratory Rate 18 02/09/2024 1:25 PM CDT Oxygen Saturation 98% 02/09/2024 1:25 PM CDT Inhaled Oxygen Concentration - - Weight 77.4 kg (170 lb 9.8 oz) 02/09/2024 12:29 PM CDT Height 172.1 cm (5' 7.76 ) 01/25/2024 9:11 AM CD T Body Mass Index 26.13 01/25/2024 9:11 AM CDT Plan of Treatment Not on file Procedures Procedure Name Priority Date/Time Associated Diagnosis Comments HEPATITIS C ANTIBODY Routine 01/25/2024 10:56 AM CDT Neutropenia, unspecified type (HCC) EGFR Routine 01/25/2024 10:56 AM CDT Neutropenia, unspecified type (HCC) POCT HEMOGLOBIN A1C Routine 06/29/2022 1 1:33 AM HOT WATER HEATER INSTALLER LIPID PANEL STAT 05/24/2022 4:48 PM HOT WATER HEATER INSTALLER from Last 3 Months or Most Recently Relevant to Health Maintenance Results * eGFR (01/25/2024 10:56 AM CDT) eGFR >90 >=60 mL/min/1. 73 m2 Comment: Interpretive Data Reference Interval Normal >/= 90 mL/min/1.73m2 Mildly decreased* 60 - 89 mL/min/1.73m2 Mildly to moderately decreased 45 - 59 mL/min/1.73m2 Moderately to severely decreased 30 - 44 mL/min/1.73m2 Severely decreased 15 - 29 mL/min/1.73m2 Kidney Failure < 15 mL/min/1.73m2 *Relative to young adult level Estimated glomerular filtration rate is determined by the 2020 CKD-EPI equation recommended by the National Kidney Foundation (A Unifying Approach to GFR Estimation: Recommendations of the NKF-ASK Task Force on Reassessing the Inclusion of Race in Diagnosing Kidney Disease, JASN 2020). The CKD-EPI equation should not be used for patients with unstable renal function and has not been validated in children and those over 70. Current interpretive data was last reviewed 2021. Testing performed by: [facility], [address] [place] [id number] Blood 01/25/2024 10:5 6 AM CDT 01/25/2024 11:05 AM CDT us Carol Traore MD LAB BLOOD ORDERABLES Final R esult Performing Organization Address [facility] [place] [address] * Hepatitis C antibody Blood (01/25/2024 10:56 AM CDT) [facility] Hep C Ab Nonreactive Nonreactive Comment:Antibodies to HCV no t detected. Does NOT exclude the possibility of recent exposure to HCV. Current interpretive data was last revised on 22 Blood 01/25/2024 10:5 6 AM CDT 01/25/2024 11:16 AM CDT Carol Traore MD LAB MICROBIOLOGY - GENERAL O RDERABLES Final Result Performing Organization Address [facility] [place] [address] * (ABNORMAL) POCT hemoglobin A1c (06/29/2022 11:33 AM HOT WATER HEATER INSTALLER) [facility] Hgb A1C, POC 7.7(H) 4.0 - 5.6 % [facility] Est Average Gluc POC 174 mg/dL [facility] Comment: The ADA recommends reporting an estimated Average Glucose (eAG) with all Hemoglobin A1c results using the equation derived from a study of 507 normal and diabetic adults. Minority populations were underrepresented and children were not included. (Diabetes Care 31:2736-7711, 2008). The eAG is not equivalent to a fasting glucose. Blood 06/29/2022 11:3 3 AM HOT WATER HEATER INSTALLER 06/29/2022 11:33 AM HOT WATER HEATER INSTALLER us Jc Almaguer DO POINT OF CARE TEST ORDERABLES F inal Result Performing Organization Address [facility] Co de Phone Number [facility] [place] [address] * (ABNORMAL) Lipid panel (05/24/2022 4:48 PM HOT WATER HEATER INSTALLER) Cholesterol 239(H) 30 - 199 mg/dL [facility] Comment: Interpretive Data Ages < or = 19 years Acceptable: <170 mg/dL Borderline high: 170-199 mg/dL High: >or= 200 mg/dL Ages > or = 20 years Desirable: <200 mg/dL Borderline high: 200-239 mg/dL High: >or= 240 mg/dL Literature References: 1. Expert Panel on Integrated Guidelines for Cardiovascular Health and Risk Reduction in Children and Adolescents. Pediatrics 2011;128:S213 2. NCEP Expert Panel. Circulation 2004;110:227 Current Interpretive Data was last revised on 2018. Triglycerides 74 <=149 mg/dL [facility] Comment: Interpretive Data Ages < or = 9 years Acceptable: <75 mg/dL Borderline high: 75-99 mg/dL High: >or= 100 mg/dL Ages 10 to 20 years Acceptable: <90 mg/dL Borderline high: 90-129 mg/dL High: >or= 130 mg/dL Ages > or = 20 years Desirable: <150 mg/dL Borderline high: 150-199 mg/dL High: 200-499 mg/dL Very high: >or= 499 mg/dL Literature References: 1. Expert Panel on Integrated Guidelines for Cardiovascular Health and Risk Reduction in Children and Adolescents. Pediatrics 2011;128:S213 2. NCEP Expert Panel. Circulation 2004;110:227 Current Interpretive Data was last revised on 2018. HDL 78 >=40 mg/dL [facility] Comment: Interpretive Data Ages < or = 19 years Acceptable: >45 mg/dL Borderline low: 40-45 mg/dL Low: <40 mg/dL Ages > or = 20 years Desirable: >or= 60 mg/dL Low: <40 mg/dL Literature References: 1. Expert Panel on Integrated Guidelines for Cardiovascular Health and Risk Reduction in Children and Adolescents. Pediatrics 2011;128:S213 2. NCEP Expert Panel. Circulation 2004;110:227 Current Interpretive Data was last revised on 2018. LDL, calculated 146(H) <=129 mg/dL [facility] Comment: Interpretive Data Ages < or = 19 years Acceptable: <110 mg/dL Borderline high: 110-129 mg/dL High: >or= 130 mg/dL Ages > or = 20 years Optimal: <100 mg/dL Near optimal: 100-129 mg/dL Borderline high: 130-159 mg/dL High: >160 mg/dL Literature References: 1. Expert Panel on Integrated Guidelines for Cardiovascular Health and Risk Reduction in Children and Adolescents. Pediatrics 2011;128:S213 2. NCEP Expert Panel. Circulation 2004;110:227 Current Interpretive Data was last revised on 2018. Non-HDL Cholesterol 161 mg/dL [facility] Comment: Interpretive Data Ages < or = 19 years Acceptable: <120 mg/dL Borderline high: 120-144 mg/dL High: >145 mg/dL Ages > or = 20 years When triglycerides are >200 mg/dL, Non-HDL cholesterol is a secondary target of therapy with treatment goals that are 30 mg/dL greater than the LDL cholesterol target. Literature References: 1. Expert Panel on Integrated Guidelines for Cardiovascular Health and Risk Reduction in Children and Adolescents. Pediatrics 2011;128:S213 2. NCEP Expert Panel. Circulation 2004;110:227 Current Interpretive Data was last revised on 2018. Chol/HDL ratio 3 [facility] Blood 05/24/2022 4:48 PM HOT WATER HEATER INSTALLER 05/24/2022 5:07 PM HOT WATER HEATER INSTALLER Meme Hoskins MD LAB BLOOD ORDERABLES Irena iqbal Result [facility] Department [place] [address] from Last 3 Months or Most Recently Relevant to Health Maintenance Insurance [facility] BLUE ACC CHOICE OOS [employer] [place] BLUE ACC CHOICE OOS Care Teams Marketing Automation Analyst Relationship Specialty Start Date End Date Sandra Ko MD [address] [place] [address] PCP - General Internal Medicine 01/17/24 Sandra Ko MD [address] [place] [address] 01/17/24 Miscellaneous, Not In File 05/29/22 Jc Almaguer DO [address] [place] [address] Consulting Physician Neurosurgery 05/29/22
--- OUTSIDE RECORDS SUMMARY | 2024-07-13 08:35 | XMS_ITS | Encounter Summary ---
Author Organization [facility] Address [address] [place] [address] Phone Care Team Providers Care Winch Stripper Name Role Phone Sandra Ko MD Primary Care Provider [phone] Sandra Ko MD Primary Care Provider + [phone] Sandra Ko MD Unavailable [phone] Miscellaneous, Not In File Unavailable Unava ilable KarolynJc orourke Unavailable [phone] Encounter Details Date Type Department Care Team (Late st Contact Info) Description 08/14/2019 Telephone [facility] Cardiology [address] [facility] Advanced Medicine 8th [place] [address] [place] [address] Lisa Solo, [facility] Social History Tobacco Use Types Packs/Day Years Used Date Smoking Tobacco: Never Assessed Comments Unknown Sex and Gender Information Value Date Recorded Sex Assigned at Not on file Legal Sex Female 5:38 AM ACTIVITY LEADER Gender Identity Female 02/05/2020 11:58 AM CDT Sexual Orientation Straight 02/05/2020 11 :58 AM CDT COVID-19 Exposure Response Date Recorded In the last month, have you been in contact with someone who was confirmed or suspected to have Coronavirus / COVID-19? No / Unsure 08/17/2019 12:31 PM CDT documented as of this encounter Plan of Treatment Not on file documented as of this encounter Visit Diagnoses Not on filedocumented in this encounter Care Teams Winch Stripper Relationship Specialty Start Date End Date Sandra Ko MD [address] [place] [address] PCP - General 11/19/16 01/16/24 Sandra Ko MD [address] [place] [address] PCP - General Internal Medicine 01/17/24 Sandra Ko MD [address] [place] [address] 01/17/24 Miscellaneous, Not In File 05/29/22 Jc Almaguer DO [address] [place] [address] Consulting Physician Neurosurgery 05/29/22 documented as of this encounter
--- OUTSIDE RECORDS SUMMARY | 2024-07-13 08:35 | XMS_ITS | Clinical Summary ---
Author Organization [facility] [address] [facility] Address [address] [place] [address] Care Team Providers Care Blueberry Grower Name Role Phone Sandra Ko MD Primary Care Provider [phone] Sandra Ko MD Unavailable [phone] Miscellaneous, Not In File Unavailable Unava ilable Jc Almaguer DO Unavailable [phone] Allergies Active Allergy Reactions Criticality Noted [...] per tablet/capsule Take 1 tablet/capsule by mouth licensed surveyor before breakfast Active metoprolol XL (TOPROL-XL) 25 [...] complication, with long-term current use of insulin ([facility]/HCC) ([facility]) Inject 36 Units under the skin nightly 4 Active Active Problems Problem Noted Date Diagnosed Date Intervertebral disc disorder with radiculopathy of lumbar region 06/18/2022 Overview (06/18/2022): Added automatically from request for surgery [id number] Carpal tunnel syndrome 06/17/2022 Current tear of [...] 07/19/2018 Pneumococcal Polysaccharide PPV23 12/20/2017,06/2009 Tdap 08/04/2012 Surgical History Surgery Date Site/Laterality Comments ME DELIVERY ONLY Section - x3 1984,1987,1988 (Added by TW Conv) WRIST SURGERY Wrist Surgery - carparl tunnel RT 2012 (Added by TW Conv) HIP SURGERY Hip Surgery - RT othroscopic 2013 (Added by TW Conv) MICRODISCECTOMY 06/06/2015 - 06/05/2016 COMBINED HYSTEROSCOPY DIAGNOSTIC / D&C 06/06/2019 - 06/05/2020 CARPAL TUNNEL RELEASE Medical History Medical History Date Comments Anesthesia of skin Perineal numb ness - (Added by TW Conv) Personal history of other sp ecified conditions History of chest pain - (Add ed by TW Conv) Hypertension Asthma Awareness under anesthesia Cauda equina compression (HCC) 2016 Lumbar disc herniation 05/2022 Lumbar radiculopathy Family History Medical History Relation Name Comments Hypertension Mother Family history of hypertension - (Added by TW Conv) Anesthesia problems Neg Hx Relation Name Status Comments Mother Social History Tobacco Use Types Packs/Day Years [...] on file Legal Sex 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 Gender Identity Female 02/05/2020 11:58 AM CDT Sexual Orientation Straight 02/05/2020 11 :58 AM CDT Obstetrics History Last Filed Vital Signs Vital Sign Reading [...] 01/25/2024 9:11 AM CDT Plan of Treatment Health Maintenance Due Date Last Done Comments Albumin Creatinine Ratio, Urine 1968 Breast Cancer Screening-Mammogram 1968 Cervical Cancer Screening 1968 Colon Cancer Screening-Colonoscopy 1968 Depression Screening 1968 Dilated Eye Exam 1968 Foot Exam 1968 Hepatitis B Screening 02/17/1986 Regular Well Visit/Exam 18-64 02/17/1986 Zoster Vaccine (1 of 2) 02/17/1987 Covid-19 Vaccine (3 - Modern a risk series) 10/03/2020 09/05/2020, 08/04/2020 DTaP/Tdap/Td Vaccine (2 - Td or Tdap) 08/04/2022 08/04/2012 Hemoglobin A1C 12/27/2022 06/29/2022, 05/25/2022 Lipid Panel 05/24/2023 05/24/2022, 01/05/2016 Influenza Vaccine (#1) 2024 7, 05/06/2017, 04/06/2016 eGFR 01/24/2025 01/25/2024, /09/2022, 05/28/2022, Additional history exists Pneumococcal vaccine <65 (4 of 4 - PPSV23 or PCV20) 02/17/2033 07/19/2018, 12/20/2017, 05/06/2010 Hepatitis C Screening Completed 01/25/2024 Procedures Procedure Name Priority Date/Time Associated Diagnosis Comments HEPATITIS C ANTIBODY Routine 01/25/2024 10:56 AM CDT Neutropenia, unspecified type (HCC) EGFR Routine 01/25/2024 10:56 AM CDT Neutropenia, unspecified type (HCC) POCT HEMOGLOBIN A1C Routine 06/29/2022 1 1:33 AM HOME CARE AND HOME HEALTH AIDES TEACHER LIPID PANEL STAT 05/24/2022 4:48 PM HOME CARE AND HOME HEALTH AIDES TEACHER from Last 3 Months or Most Recently [...] was last reviewed 2021. Testing performed by: [facility], [address] [place] [id number] Blood 01/25/2024 10:5 6 AM CDT 01/25/2024 11:05 AM CDT us Carol A. Blinder MD LAB BLOOD ORDERABLES Final R esult Performing Organization Address [facility] Co de Phone Number [facility] [place] [address] * Hepatitis C antibody Blood (01/25/2024 10:56 AM CDT) Hep C Ab Nonreactive Nonreactive Comment:Antibodies to HCV no t detected. Does NOT exclude the possibility of recent exposure to HCV. Current interpretive data was last revised on 22 Blood 01/25/2024 10:5 6 AM CDT 01/25/2024 11:16 AM CDT Result [facility] Carol Traore MD LAB MICROBIOLOGY - GENERAL O RDERABLES Final Result Performing Organization Address [facility] [place] [address] * (ABNORMAL) POCT hemoglobin A1c (06/29/2022 11:33 AM HOME CARE AND HOME HEALTH AIDES TEACHER) Hgb A1C, POC 7.7(H) 4.0 - 5.6 % [facility] Est Average Gluc POC 174 mg/dL [facility] Comment: The ADA recommends reporting an estimated Average Glucose (eAG) with all Hemoglobin A1c results using the equation derived from a study of 507 normal and diabetic adults. Minority populations were underrepresented and children were not included. (Diabetes Care 31:4168-9372, 2008). The eAG is not equivalent to a fasting glucose. 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 [place] [address] * (ABNORMAL) Lipid panel (05/24/2022 4:48 PM HOME CARE AND HOME HEALTH AIDES TEACHER) Cholesterol 239(H) 30 - 199 mg/dL [facility] Comment: Interpretive Data Ages < or [...] revised on 2018. Triglycerides 74 <=149 mg/dL [facility] Comment: Interpretive Data Ages < or [...] revised on 2018. HDL 78 >=40 mg/dL [facility] Comment: Interpretive Data Ages < or = [...] on 2018. LDL, calculated 146(H) <=129 mg/dL [facility] Comment: Interpretive Data Ages < or [...] revised on 2018. Non-HDL Cholesterol 161 mg/dL [facility] Comment: Interpretive Data Ages < or = [...] last revised on 2018. 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 TEACHER 05/24/2022 5:07 PM HOME CARE AND HOME HEALTH AIDES TEACHER Meme Hoskins MD LAB BLOOD ORDERABLES Irena iqbal Result [facility] Department [place] [address] from Last 3 Months or Most Recently Relevant to Health Maintenance Insurance [facility] BLUE ACC CHOICE OOS [employer] [place] BLUE ACC CHOICE OOS Care Teams Blueberry Grower Relationship Specialty Start Date End Date Sandra Ko MD [address] [place] [address] PCP - General Internal Medicine 01/17/24 Sandra Ko MD [address] [place] [address] 01/17/24 Miscellaneous, Not In File 05/29/22 cJ Almaguer DO [address] [place] [address] Consulting Physician Neurosurgery 05/29/22
--- OUTSIDE RECORDS SUMMARY | 2024-07-13 08:35 | XMS_ITS | Encounter Summary ---
Author Organization [facility] Address [address] [place] [address] Phone Care Team Providers Care Solar System Designer Name Role Phone Sandra Ko MD Primary Care Provider [phone] Sandra Ko MD Primary Care Provider [phone] Sandra Ko MD Unavailable [phone] Miscellaneous, Not In File Unavailable Unava ilable Jc Almaguer DO Unavailable [phone] Encounter Details Date Type Department Care Team (Latest Contact Info) Description 07/25/2019 Orders Only [facility] Scanning, Provider Social History Tobacco Use Types Packs/Day Years Used Date Smoking Tobacco: Never Assessed Comments Unknown Sex and Gender Information Value Date Recorded Sex Assigned at Not on file 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 Gender Identity Female 02/05/2020 11:58 AM CDT Sexual Orientation Straight 02/05/2020 11 :58 AM CDT documented as of this encounter Plan of Treatment Not on file documented as of this encounter Procedures Procedure Name Priority Date/Time Associated Diagnosis Comments SCAN - LABS 07/25/2019 documented in this encounter Results * SCAN - LABS (07/25/2019) us Provider Scanning Final Result documented in this encounter Visit Diagnoses Not on filedocumented in this encounter Care Teams Solar System Designer Relationship Specialty Start Date End Date Sandra Ko MD [address] [place] [address] PCP - General 11/19/16 01/16/24 Sandra Ko MD [address] [place] [address] PCP - General Internal Medicine 01/17/24 Sandra Ko MD [address] [place] [address] 01/17/24 Miscellaneous, Not In File 05/29/22 Jc Almaguer DO [address] [place] [address] Consulting Physician Neurosurgery 05/29/22 documented as of this encounter
--- OUTSIDE RECORDS SUMMARY | 2024-07-13 08:35 | XMS_ITS | Data Portability ---
Author Organization [place] [facility], Main Office Address [address] [place] [address] Care Team Providers Care Coal Crusher Operator Name Role Phone MADY STODDARD Primary Care Provider MADY STODDARD Referring Provider [phone] Assessment Encounter Date Assessment Date Assessment LastModified by Organization Details LastModified Time 10/29/2022 10/29/2022 impression: Patient has very symptomatic carpal tunnel syndrome. She states that it showed carpal tunnel syndrome on the nerve conduction velocity testing he mg that she had a both upper extremities in 2014 prior to her carpal tunnel release on the right which was the were side. She has been using splints without relief. She thinks she has been made worse by the fact that she had used a walker to bear weight for several months until she could undergo surgery on her lower back to get relief the symptoms. They postponed the surgery until her hemoglobin A1c was improved. She would like to proceed with Left carpal tunnel release at this time. I have discussed risks of surgery with her in detail. She is at a little bit higher risk for infection because of her diabetes and there is risk that she may have some generalized peripheral neuropathy that can cause some lingering numbness problems. Based on her severe nocturnal symptoms and exam findings, I would expect she would have substantial relief from carpal tunnel release on the left. We will proceed as discussed. 30 minutes were spent in total care this patient more than half the time spent in [id number] care. [email or web address] Not available 10/31/2022 10:53:45 12/15/2022 12/15/2022 HPI: Patient returns. She is 14 days out from left carpal tunnel release. She has had complete resolution of her symptoms in the hand since surgery. She is able sleep at night without her hand going to sleep. She is having no symptoms through the day as well. Physical exam: Patient's Incision is well healed. Stitches removed. She has full range of motion of the wrist and fingers. Impression: Patient is 2 weeks out from left carpal tunnel release. She has had excellent resolution of her symptoms. She may increase activities as tolerated. We will see her back as needed. [email or web address] Not available 12/15/2022 10:32:44 Plan of Treatment Reminders Order Date Submit Date Provider Last Modified By Organization Details Last Modified Time Details Appointments None record ed. Lab None record ed. Referral None record ed. Procedures None record ed. Surgeries None record ed. Imaging XR, hand 023 10/30/19 23 [email or web address] [facility] [place], [facility] [facility] [address], [place], [address], 10:00:35 Medication Orders None record ed. Patient TargetsNo targets recorded. Patient InstructionsNo instructions recorded. Reason for Referral None Reported. Results Created Date Observation Date Name Description Value Unit Range Abnormal Flag Note LastModifiedBy Organization Detail LastModifiedTime 01/01/20 21 01/01/2021 TSH TSH 1.33 mIU/L normal Refer ence Range > or = 20 Years 0.40- 4.50 Pregn shivam Range s First trime ster 0.26- 2.66 Secon d trime ster 0.55- 2.73 Third trime ster 0.43- 2.91 Not Available [facility] [address] [place], [place] [address], [address], 01/01/2021 06:39:17 01/01/20 21 01/01/2021 TSH copy(ies) sent to: CARLOS Tee [address] [address] Not Available [facility] [address] [place], [address], 01/01/2021 06:39:17 03/27/20 21 03/27/2021 MAMMO , diagn ostic , digit al, unila teral No observ ation record ed. [id number] [facility]) [address] [facility], [place], [address], 08/04/2022 08:13:51 10/30/19 23 XR, hand No observ ation record ed. [email or web address] [facility] [place] [address] [facility] [address], [place], [address], 10/31/2022 10:50:24 11/27/1905/24/2022 elect lala jenkins am No observ ation record ed. [email or web address] Not Available 2022 12:42:57 Result Notes None recorded. Problems Name Problem SNOMED Code Status Onset Date Resolution Date Notes Provider Name and Address Organization Details Recorded Time Enlarged uterus 535981099 Active Not Available [facility] 3 08:08:59 Right lower quadrant pain 417629592 Active Not Available [facility] 3 08:08:59 Current tear of medial cartilage AND/OR meniscus of knee Active Not Available [facility] 3 08:08:59 Hip pain 34254009 Active Not Available [facility] 3 08:08:59 Carpal tunnel syndrome 78272323 Active Not Available [facility] 3 08:08:59 Cyst of ovary 33524961 Active Not Available [facility] 3 08:08:59 Pain of left hand 7314992957990 03 Active 2022 PRETTY Lew, [facility] 3 09:32:02 Bilateral carpal tunnel syndrome 0322403719176 9101 Active 2022 PRETTY Lew, [place] [facility] 3 10:06:38 Problem Notes None recorded. Procedures Surgical History Date Name Laterality Status Provider Name and Address Organization Details Recorded Time 1 Most Recent Mammogram completed Not Available [facility] 08/04/2022 08:05:58 0 [employer]ANT [employer] Procedure completed Not Available [facility] 2022 08:06:00 9 Date of Last Pap Smear completed Not Available [facility] 08/04/2022 08:05:58 7 Back Surgery completed Not Available [facility] 023 08:06:00 5 [employer] Surgery completed Not Available [facility] 08/05/19 08:06:00 3 Carpal tunnel surgery completed Not Available [facility] 08/04/2022 08:06:00 Cyst Removal [facility] 08:06:00 [employer] Procedure completed Not Available [facility] 08/04/2022 08:06:00 delivery completed Not Available [facility] 08/04/2022 08:06:00 other completed Not Available [facility] 06/2022 08:06:00 Imaging Results Imaging Date Name Status LastModified by Organization Details LastModified Time 03/27/2021 MAMMO, diagnostic, digital, unilateral completed [id number], [address], 08/04/2022 08:13:51 10/29/2022 XR, hand completed [email or web address] [facility] [place] [address] [facility] [address], [place], [address], 10/31/2022 10:50:24 05/24/2022 electrocardiogram completed [email or web address] Informa tion not available 11/26/2022 12:42:57 Procedure Notes None recorded. Medical Equipment None Reported. Allergies Allergen ID Allergen Name Allergen Category Reaction Reaction Severity Criticality Documentation Date Start Date Code Code System Note Provider Name and Address Organization Details Recorded Time tizanidin e medicatio n other Not available Not available 08/04/2022 65636 RxNorm bp dropp ed, santy jones w Not Available [facility] 3 08:13:46 Product containin g penicilli n and antibioti c (product) medicatio n itching Not available Not available 08/04/2022 29941 05 SNOMED vomit ing Not Available [facility] 08:13:46 Non-stero idal anti-infl ammatory agent (product) medicatio n respirato ry distress Not available Not available 08/04/2022 07793 005 SNOMED Not Available [facility] 3 08:13:46 adhesive environme nt,medica tion rash Not available Not available 08/04/2022 62469 UNK Not Available [facility] 3 08:13:46 Medications Name Sig Start Date Stop Date Status Note LastModified by Organization Details LastModified Time cyclobenzap rine 10 mg tablet 12/15 completed Not Available Not Available Not Available terazosin 5 mg capsule TAKE 1 CAPSULE BY MOUTH AT BEDTIME 11/11 completed Not Available Not Available Not Available fluconazole 100 mg tablet 11/11 completed Not Available Not Available Not Available Qvar 80 mcg/actuati on Metered Aerosol oral inhaler 11/10 completed Not Available Not Available Not Available azelastine 0.05 % eye drops 07/31 completed Not Available Not Available Not Available nystatin 100,000 unit/mL oral suspension 12/15 completed Not Available Not Available Not Available venlafaxine ER 37.5 mg capsule,ext ended release 24 hr active Not Available Not Available Not Available prednisone 10 mg tablet 11/10 completed Not Available Not Available Not Available doxycycline hyclate 100 mg capsule 11/10 completed Not Available Not Available Not Available cefuroxime axetil 250 mg tablet 11/10 completed Not Available Not Available Not Available ipratropium 0.5 mg-albutero l 3 mg (2.5 mg base)/3 mL nebulizatio n soln 07/31 completed Not Available Not Available Not Available azithromyci n 250 mg tablet 12/31 completed Not Available Not Available Not Available tizanidine 4 mg tablet 01/14 completed Not Available Not Available Not Available fluconazole 150 mg tablet 01/14 completed Not Available Not Available Not Available metoprolol succinate ER 50 mg tablet,exte nded release 24 hr 01/14 completed Not Available Not Available Not Available sumatriptan 100 mg tablet 07/31 completed Not Available Not Available Not Available hydrocodone 5 mg-acetamin ophen 325 mg tablet 01/14 completed Not Available Not Available Not Available phenazopyri dine 200 mg tablet TAKE 1 TABLET BY MOUTH THREE TIMES DAILY 11/11 completed Not Available Not Available Not Available lisinopril 20 mg tablet 12/31 completed Not Available Not Available Not Available prednisone 20 mg tablet 11/10 completed Not Available Not Available Not Available isosorbide mononitrate ER 30 mg tablet,exte nded release 24 hr 01/14 completed Not Available Not Available Not Available metoprolol succinate ER 100 mg tablet,exte nded release 24 hr 11/11 completed Not Available Not Available Not Available norethindro ne 1 mg-ethinyl estradiol 20 mcg (21)-iron 75 mg (7) tablet TAKE ONE TABLET BY MOUTH DAILY active Not Available Not Available No t Available amlodipine 5 mg tablet active Not Available Not Available Not Available estradiol-n orethindron e acet 1 mg-0.5 mg tablet Take 1 tablet every day by oral route. 12/15 completed Not Available Not Available Not Available Tamiflu 75 mg capsule active Not Available Not Available N ot Available sulfamethox azole 800 mg-trimetho prim 160 mg tablet active Not Available Not Available Not Available omeprazole 40 mg capsule,del ayed release 11/10 completed Not Available Not Available Not Available doxycycline monohydrate 100 mg tablet active Not Available Not Available Not Available tramadol 50 mg tablet active Not Available Not Available No t Available triamterene 37.5 mg-hydrochl orothiazide 25 mg capsule 12/31 completed Not Available Not Available Not Available hydrocortis one 2.5 % topical cream with perineal applicator active Not Available Not Available N ot Available Guaiatussin AC 10 mg-100 mg/5 mL oral liquid 01/14 completed Not Available Not Available Not Available alprazolam 0.25 mg tablet 11/10 completed Not Available Not Available Not Available amlodipine 10 mg tablet 11/10 completed Not Available Not Available Not Available benzonatate 100 mg capsule 07/31 completed Not Available Not Available Not Available doxycycline monohydrate 100 mg capsule 12/31 completed Not Available Not Available Not Available hydrocodone 7.5 mg-acetamin ophen 325 mg tablet 11/10 completed Not Available Not Available Not Available cephalexin 500 mg capsule active Not Available Not Available Not Available pantoprazol e 40 mg tablet,ren yed release 11/11 completed Not Available Not Available Not Available nitrofurant oin macrocrysta l 100 mg capsule active Not Available Not Available Not Available misoprostol 200 mcg tablet Take 2 tablets by oral route at bedtime for 1 day. 12/31 completed Not Available Not Available Not Available gabapentin 300 mg capsule active Not Available Not Available Not Available triamterene 37.5 mg-hydrochl orothiazide 25 mg tablet active Not Available Not Available Not Available montelukast 10 mg tablet active Not Available Not Available Not Available mupirocin 2 % topical ointment 12/15 completed Not Available Not Available Not Available gabapentin 100 mg capsule active Not Available Not Available Not Available metoprolol succinate ER 25 mg tablet,exte nded release 24 hr active Not Available Not Available Not Available Transderm-S photostatic copy maker 1 mg over 3 days transdermal patch active Not Available Not Available Not Available epinephrine 0.3 mg/0.3 mL injection, auto-inject or active Not Available Not Available Not Available cefuroxime axetil 500 mg tablet 07/31 completed Not Available Not Available Not Available levofloxaci n 500 mg tablet 12/31 completed Not Available Not Available Not Available estradiol 0.01% (0.1 mg/gram) vaginal cream Insert 1 g 3 times a week by vaginal route for 90 days. 12/15 completed Not Available Not Available Not Available levofloxaci n 750 mg tablet TAKE 1 TABLET BY MOUTH EVERY DAY 07/31 completed Not Available Not Available Not Available methylpredn isolone 4 mg tablets in a dose pack 12/15 completed Not Available Not Available Not Available ipratropium bromide 42 mcg (0.06 %) nasal spray 11/10 completed Not Available Not Available Not Available ondansetron 4 mg disintegrat ing tablet 07/31 completed Not Available Not Available Not Available lisinopril 2.5 mg tablet active Not Available Not Available Not Available naproxen 500 mg tablet active Not Available Not Available Not Available Microlet Lancet active Not Available Not Available Not Available amoxicillin 875 mg-potassiu m clavulanate 125 mg tablet 07/31 completed Not Available Not Available Not Available oxycodone 5 mg tablet 12/15 completed Not Available Not Available Not Available insulin aspart (U-100) 100 unit/mL (3 mL) subcutaneou s pen active Not Available Not Available Not Available nitrofurant oin monohydrate /macrocryst als 100 mg capsule TAKE 1 CAPSULE BY MOUTH TWICE DAILY WITH A MEAL FOR 7 DAYS 10/29 completed Not Available Not Available Not Available Lyrica 50 mg capsule 01/14 completed Not Available Not Available Not Available Loestrin 24 Fe 1 mg-20 mcg (24)/75 mg (4) tablet active Not Available Not Available Not Available ProAir HFA 90 mcg/actuati on aerosol inhaler 07/31 completed Not Available Not Available Not Available Lantus Solostar U-100 Insulin 100 unit/mL (3 mL) subcutaneou s pen active Not Available Not Available Not Available Humalog KwikPen (U-100) Insulin 100 unit/mL subcutaneou s active Not Available Not Available Not Available oxycodone 10 mg tablet 12/15 completed Not Available Not Available Not Available Camrese 0.15 mg-30 mcg (84)/10 mcg(7) tablets,3 month dose pack Take 1 tablet every day by oral route. 11/10 completed Not Available Not Available Not Available Contour Next Test Strips active Not Available Not Available Not Available Breo Ellipta 200 mcg-25 mcg/dose powder for inhalation active Not Available Not Available N ot Available Qvar RediHaler 80 mcg/actuati on HFA breath activated aerosol 07/31 completed Not Available Not Available Not Available albuterol sulf 90 mcg/actuati on breath activated powder inhaler,sen sor Inhale 2 puffs every 4 hours by inhalatio n route. 2020 active Not Available Not Available Not Avai lable insulin glargine-yf gn (U-100) 100 unit/mL (3 mL) subcutaneou s pen active Not Available Not Available Not Available Vitals Date Recorded Body mass index (BMI) Body height Body weight Systolic blood pressure Diastolic blood pressure Provider Name and Address Organization Details Last Updated DateTime 08/04/2022 25.7 kg/m2 173.36 cm 00668.7 g 116 mm[Hg] 80 mm[Hg] Not Available [facility] 3 08:06:58 Date Recorded Body height Body mass index (BMI) Body weight Provider Name and Address Organization Details Last Updated DateTime 10/29/2022 170.18 cm 25.7 kg/m2 85364.15 g [facility] 10/29/2022 09:35:01 Date Recorded Body height Provider Name triston d Address Organization Details Last Updated DateTime 12/15/2022 170.18 cm PRETTY Lew Leida DE Gezlong [facility] 12/15/2022 10:04:38 Social History Question Answer Notes LastModified by [employer] Details LastModified Time Tobacco Smoking Status Never Smoker Not Available [facility] 08/04/2022 08:05:46 Do You Use Any Illicit Or Recreational Drugs? No [id number] Information not available 08/04/2022 Has Tobacco Cessation Counseling Been Provided? No [id number] Information not available 08/04/2022 Do You Or Have You Ever Used Any Other Forms Of Tobacco Or Nicotine? No [id number] Information not available 08/04/2022 Sex: Unknown Functional Status Question Answer Note LastModified by [employer] Details LastModified Time What is your exercise level? Moderate [id number] Information not available 08/04/2022 Mental Status None recorded. Family History Relationship Description Onset Age of this Age Resolved Age Notes LastModified by Organization Details LastModified Time Father Heart disease [id number] Not available 08/04/2022 08:06:01 Mother Alcohol abuse [id number] Not available 08/04/2022 08:06:01 Father Diabetes mellitus [email or web address] Not available 2022 09:31:11 Maternal Grandfather Diabetes mellitus [email or web address] Not available 2022 09:31:11 Medical History Condition Response DIABETES, TYPE Y ANXIETY DISORDER Y HEART ARRHYTHMIA Y HYPERTENSION Y STROKE/TIA Y Gynecological History Statement/Question Response Abnormal Pap N Date of Last Mammogram 03/26/2021 Date of LMP Date of Last Pap Smear 11/10/2018 Current Control Method Tubal Ligat ion Most Recent Mammogram 03/26/2021 Breast Problems no Obstetrics History GPAL:G 3 P 3 0 0 2 Type Value Full Term 3 Living 2 Total 3 Immunizations Vaccine Type Date Status Note Provider Nam e and Address Organization Details Recorded Time COVID-19, mRNA, LNP-S, PF, 100 mcg/0.5mL dose or 50 mcg/0.25mL dose 09/05/2020 completed Not Available [facility] 3 08:13:38 COVID-19, mRNA, LNP-S, PF, 100 mcg/0.5mL dose or 50 mcg/0.25mL dose 08/04/2020 completed Not Available [facility] 3 08:13:38 Past Encounters Encounter ID Performer Location Encounter Start Date Encounter Closed Date Diagnosis/Indication Diagnosis SNOMED-CT Code Diagnosis ICD10 Code Diagnosis Note [id number] _ELLY_Haile IGRATION_ DEFAULT_1 _1 , 12/31/2020 00:00:00 12/31/2020 11:16:50 [id number] Rodrigo Pastrana MD [facility] [place] [address] [place] [address] 10/29/2022 09:08:38 11/02/2022 10:00:35 Pain of left hand 0597649304 05751 M79.642 [id number] RADHA Forbes [facility] [place] [address] [place] [address] 12/15/2022 09:58:28 12/15/2022 11:59:41 Bilateral carpal tunnel syndrome 0376689737 6704394 G56.02 Health Concerns Section Related Observation LastModified by Organization Detai ls LastModified Time None Recorded Concern Status LastModified by Organization Details LastModified Time None Recorded Advance Directives Directive None Recorded Payers Encounter Date Sequence Insurance Name Policy Number Policy Bella Covered Member ID Bella Member ID Guarantor Name 10/29/2022 1 [place] [id number] Lakia Yu [id number] Lakia Yu 12/15/2022 1 [place] [id number] Lakia Yu [id number] Lakia Haile Aimee Notes Date Note Type Note Provider Name and Address Organization Details Recorded Time 10/29/2022 text/html Patient is a 52-year-old female who presents for evaluation and treatment of her longstanding carpal tunnel syndrome left hand. She has had symptoms off and on for 8 years. She underwent right carpal tunnel release surgery in 2014 and had immediate improvement in her symptoms. The left side was not quite as severe at that time but she wanted to have it done although things kept coming up keeping her from having time to take care of this and since her symptoms were fairly mild she was content to live with that but over the last few months her symptoms have worsened considerably. She wakes up in the middle the night with sensation of burning and freezing in the thumb through ring fingers of her left hand. In the morning the burning tingling sensation lean GERD for between 5 and 15 minutes while she tries to shake it off for hand down to get relief. She has been using a cock-up splint at night without benefit. She tried improve her a and this was immediately intolerable due to immediate onset of numbness tingling burning freezing sensation. She has no history of prior neck surgery or neck problems but she does have recent history of back surgery L5-S1 on August 11. Her 1st surgery at that same level was in 2015. The Patient has diabetes and last hemoglobin A1c is down to 5.7. It was 9.1 at the beginning of the year. She is on insulin. Patient has history of anaphylactic reaction to nonsteroidal anti-inflammatory medications. Rash with penicillin. Rodrigo Pastrana MD [address] [facility], [place] [address], [place], [address], [facility] [employer] 10/31/2022 10:53:52 OBGyn Episode No OBEpisode recorded.
--- OUTSIDE RECORDS SUMMARY | 2024-07-13 08:35 | XMS_ITS | Encounter Summary ---
Author Organization [facility] Address [address] [place] [address] Phone Care Team Providers Care Concrete Polisher Name Role Phone Sandra Ko MD Primary Care Provider [phone] Sandra Ko MD Unavailable [phone] Miscellaneous, Not In File Unavailable Unava ilable Jc Almaguer DO Unavailable [phone] Encounter Details Date Type Department Care Team (Latest Contact Info) Description 01/25/2024 Orders Only [facility] Scanning, Provider Social History Tobacco Use Types Packs/Day Years Used Date Smoking Tobacco: Never Passive Smoke Exposure: Never Smokeless Tobacco: Never AUDIT-C Answer Date Recorded Q1: How often [...] on file 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 Gender Identity Female 02/05/2020 11:58 AM CDT Sexual Orientation Straight 02/05/2020 11 :58 AM CDT documented as of this encounter Plan of Treatment Not on file documented as of this encounter Procedures Procedure Name Priority Date/Time Associated Diagnosis Comments SCAN - LABS 01/25/2024 documented in this encounter Results * SCAN - LABS (01/25/2024) us Provider Scanning Final Result documented in this encounter Visit Diagnoses Not on filedocumented in this encounter Care Teams Concrete Polisher Relationship Specialty Start Date End Date Sandra Ko MD [address] [place] [address] PCP - General Internal Medicine 01/17/24 Sandra Ko MD [address] [place] [address] 01/17/24 Miscellaneous, Not In File 05/29/22 Jc Almaguer DO [address] [place] [address] Consulting Physician Neurosurgery 05/29/22 documented as of this encounter
--- OUTSIDE RECORDS SUMMARY | 2024-07-13 08:35 | XMS_ITS | Encounter Summary ---
Author Organization [facility] Address [address] [place] [address] Phone Care Team Providers Care Solid Waste Analyst Name Role Phone Sandra Ko MD Primary Care Provider + [phone] Sandra Ko MD Primary Care Provider + [phone] Sandra Ko MD Unavailable [phone] Miscellaneous, Not In File Unavailable Unava ilable Jc Almaguer DO Unavailable [phone] Encounter Details Date Type Department Care Team (Latest Contact Info) Description 02/23/2019 Orders Only [facility] Scanning, Provider Social History Tobacco Use Types Packs/Day Years Used Date Smoking Tobacco: Never Assessed Comments Unknown Sex and Gender Information Value Date Recorded Sex Assigned at Not on file 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 Gender Identity Female 02/05/2020 11:58 AM CDT Sexual Orientation Straight 02/05/2020 11 :58 AM CDT documented as of this encounter Plan of Treatment Not on file documented as of this encounter Procedures Procedure Name Priority Date/Time Associated Diagnosis Comments CARDIOLOGY DOCUMENT SCAN 02/23/2019 documented in this encounter Results * SCAN - CARDIOLOGY (02/23/2019) Anatomical Region Laterality Modality Other us Provider Scanning CV CARDIAC SERVICES PROCEDURES Final Result documented in this encounter Visit Diagnoses Not on filedocumented in this encounter Care Teams Solid Waste Analyst Relationship Specialty Start Date End Date Sandra Ko MD [address] [place] [address] PCP - General 11/19/16 01/16/24 Sandra Ko MD [address] [place] [address] PCP - General Internal Medicine 01/17/24 Sandra Ko MD [address] [place] [address] 01/17/24 Miscellaneous, Not In File 05/29/22 Jc Almaguer DO [address] [place] [address] Consulting Physician Neurosurgery 05/29/22 documented as of this encounter
[2024-07-13 09:03] LABS: Hematocrit 42.7 % (35.0-49.0); Mean Corpuscular HGB Conc 32.8 g/dL (32-36); Mean Corpuscular Hemoglobin 30.4 pg (27.0-31.0); Mean Corpuscular Volume 92.8 fL (78.0-102.0); Mean Platelet Volume 9.5 fl (9.2-11.8); Platelet Count Result 276 K/mm3 (150-420); Red Cell Distribution Width 12.7 % (11.6-14.4); White Blood Count 2.2 K/mm3 (4.8-10.8)
[2024-07-13 09:05] LABS: Add Urine Microscopic? NO; Appearance Urine Clear (Clear); Bilirubin Urine Negative (Negative); Blood Urine Negative (Negative); Color Urine Light Yellow (Yellow); Glucose Urine UA Negative (Negative); Ketones Urine Negative (Negative); Leukocyte Esterase Ur Negative LEU/UL (Negative); Nitrate Urine Negative (Negative); Protein Urine Negative (Negative); Urobilinogen Urine 0.2 mg/dL (0.2-1.0)
[2024-07-13 09:13] LABS: Alanine Aminotransferase 24 U/L (14-59); Albumin Level 4.4 g/dL (3.4-5.0); Alkaline Phosphatase 93 U/L (46-116); Anion Gap 9 mmol/L (4-12); Aspartate Amino Transferase 17 U/L (15-37); Bilirubin,Total 0.8 mg/dL (0.00-1.00); Blood Urea Nitrogen 13 mg/dL (7-18); Calcium 9.5 mg/dL (8.5-10.1); Carbon Dioxide 31 mmol/L (21-32); Chloride 102 mmol/L (98-108); Cholesterol 219 mg/dL (0-200); Estimated Glomerular Filt Rate > 60; Glucose 95 mg/dL (70-99); HDL Direct 76 mg/dL (40-60); LDL Cholesterol Calculated 136 mg/dL (<130); Osmolality Calculated 294 mOsm/kg (285-295); Potassium 3.8 mmol/L (3.5-5.1); Sodium 142 mmol/L (136-145); Total Protein 7.8 g/dL (6.4-8.2); Triglycerides 35 mg/dL (0-150)
[2024-07-13 09:28] LABS: Creatinine Urine 21.83 mg/dL (40-278)
[2024-07-13 09:49] LABS: MALB Creatinine Ratio 59.5 mg/g (0-30); Microalbumin Urine Random < 13.0 mg/L
== END 2024-07-13 08:23 | disposition home or self-care (01) ==
LOC: CHSLAB 08:27
PROVIDERS: PCP Internal Medicine; Visit Provider Internal Medicine
DX: E78.2 Mixed hyperlipidemia (principal); I10 Essential (primary) hypertension; E10.65 Type 1 diabetes mellitus with hyperglycemia; D70.9 Neutropenia, unspecified; N39.0 Urinary tract infection, site not specified
CPT/HCPCS: 36415; 80053; 80061; 81003; 82043; 83036; 85027

== ENCOUNTER 2025-01-08 09:05 | Outpatient (CLI) | payer BC, SELFPAY ==
--- NOTE | 2025-01-08 | CONSULT_PTH ---
PATIENT: Lakia Yu LOC: [facility] [place][id number] AGE/SX: 54/F ROOM: RE01/08/[address]: Sandra Ko MD : 1970 BED: DIS: 01/08/2025 SPEC #: [id number] RECD: 01/08/25 10:24 STATUS: EDA REQ #: [id number] WENDY: 01/08/25 00:[address]: Sandra Ko DEPT: [facility] Consult RECD BY: Yesenia Galindo MT,([facility]) Tissues: A - Peripheral Smear Procedures: Hematology Consult
--- OUTSIDE RECORDS SUMMARY | 2025-01-08 09:27 | XMS_ITS | Encounter Summary ---
Author Organization [facility] Address [address] [place] [address] Phone Care Team Providers Care Learning And Development Analyst Name Role Phone Sandra Ko MD Primary Care Provider + [phone] Sandra Ko MD Primary Care Provider + [phone] Sandra Ko MD Unavailable [phone] Miscellaneous, Not In File Unavailable Unava ilable Jc Almaguer DO Unavailable [phone] Encounter Details Date Type Department Care Team (Latest Contact Info) Description 07/25/2019 Orders Only [facility] Scanning, Provider Social History Tobacco Use Types Packs/Day Years Used Date Smoking Tobacco: Never Assessed Comments Unknown Sex and Gender Information Value Date Recorded Sex Assigned at Not on file Legal 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
--- OUTSIDE RECORDS SUMMARY | 2025-01-08 09:27 | XMS_ITS | Clinical Summary ---
Author Organization [facility] [address] [facility] Address [address] [place] [address] Care Team Providers Care Nurse Discharge Name Role Phone Sandra Ko MD Primary Care Provider [phone] Sandra Ko MD Unavailable [phone] Miscellaneous, Not In File Unavailable Unava ilable Jc Almaguer DO Unavailable [phone] Allergies Active Allergy Reactions Criticality Noted [...] per tablet/capsule Take 1 tablet/capsule by mouth heating unit installer before breakfast Active metoprolol XL (TOPROL-XL) 25 [...] complication, with long-term current use of insulin (HCC) Inject 36 Units under the skin nightly 4 Active Active Problems Problem Noted Date Diagnosed Date Intervertebral disc disorder with radiculopathy of lumbar region 06/18/2022 Overview (06/18/2022): Added automatically from request for surgery [id number] Carpal tunnel syndrome 06/17/2022 Current tear of [...] 08/01/2014 Diabetes mellitus 08/01/2014 Syncope 07/29/2014 Immunizations Immunization Administration Dates Next Due Influenza, Quadrivalent, Split, Intramuscular Influenza, Trivalent, Preservative Free, Intramu scular 05/06/2017,04/06/2016 Moderna SARS-CoV-2 Monovalent Vaccination (12+ Y RS) 09/05/2020,08/04/2020 Pneumococcal Conjugate PCV 13 07/19/2018 Pneumococcal Polysaccharide PPV23 12/20/2017,06/2009 Tdap 08/04/2012 Surgical History Surgery Date Site/Laterality Comments [place] DELIVERY ONLY Section - x3 1984,1987,1988 (Added [...] on file Legal Sex Female 5:38 AM CAR MANAGER Gender Identity Female 02/05/2020 11:58 AM CDT [...] 12:29 PM CDT Height 172.1 cm (5' 7.76) 01/25/2024 9:11 AM CD T Body Mass [...] 06/29/2022, 05/25/2022 Lipid Panel 05/24/2023 05/24/2022, 01/05/2016 Pneumococcal vaccine <65 (4 of 4 - PCV20 or PCV21) 07/19/2023 07/19/2018, 12/20/2017, 05/06/2010 eGFR 01/24/2025 01/25/2024, /09/2022, 05/28/2022, Additional history exists Influenza Vaccine (#1) 2025 7, 05/06/2017, 04/06/2016 Hepatitis C Screening Completed 01/25/2024 Procedures Procedure Name Priority Date/Time Associated Diagnosis Comments HEPATITIS C ANTIBODY Routine 01/25/2024 10:56 AM CDT Neutropenia, unspecified type EGFR Routine 01/25/2024 10:56 AM CDT Neutropenia, unspecified type POCT HEMOGLOBIN A1C Routine 06/29/2022 1 1:33 AM CAR MANAGER LIPID PANEL STAT 05/24/2022 4:48 PM CAR MANAGER from Last 3 Months or Most Recently [...] was last reviewed 2021. Testing performed by: [facility], [address] [place] [id number] Blood 01/25/2024 10:5 6 AM CDT 01/25/2024 11:05 AM CDT us Carol Traore MD LAB BLOOD ORDERABLES Final R esult Performing Organization Address [facility] Co de Phone Number [facility] [place] [address] * Hepatitis C antibody Blood (01/25/2024 10:56 AM CDT) [facility] Hep C Ab Nonreactive Nonreactive Comment:Antibodies to HCV no t detected. Does NOT exclude the possibility of recent exposure to HCV. Current interpretive data was last revised on 22 Blood 01/25/2024 10:5 6 AM CDT 01/25/2024 11:16 AM CDT Carol Traore MD LAB MICROBIOLOGY - GENERAL O RDERABLES Final Result Performing Organization Address [facility] [place] [address] * (ABNORMAL) POCT hemoglobin A1c (06/29/2022 11:33 AM CAR MANAGER) [facility] Hgb A1C, POC 7.7(H) 4.0 - 5.6 % [facility] Est Average Gluc POC 174 mg/dL [facility] Comment: The ADA recommends reporting an estimated Average Glucose (eAG) with all Hemoglobin A1c results using the equation derived from a study of 507 normal and diabetic adults. Minority populations were underrepresented and children were not included. (Diabetes Care 31:9056-3561, 2008). The eAG is not equivalent to a fasting glucose. Blood 06/29/2022 11:3 3 AM CAR MANAGER 06/29/2022 11:33 AM CAR MANAGER Jc Almaguer DO POINT OF CARE TEST ORDERABLES F inal Result Performing Organization Address [facility] Co de Phone Number [facility] [place] [address] * (ABNORMAL) Lipid panel (05/24/2022 4:48 PM CAR MANAGER) Cholesterol 239(H) 30 - 199 mg/dL [facility] [...] revised on 2018. Non-HDL Cholesterol 161 mg/dL [facility] Comment: Interpretive Data Ages < or [...] [facility] Blood 05/24/2022 4:48 PM CAR MANAGER 05/24/2022 5:07 PM CAR MANAGER Meme Hoskins MD LAB BLOOD ORDERABLES Irena iqbal Result [facility] [address] [facility] [place] [address] from Last 3 Months or Most Recently Relevant to Health Maintenance Insurance REPLACED BY [facility] BLUE ACC CHOICE OOS [employer] [facility] [place] BLUE ACC CHOICE OOS Care Teams Nurse Discharge Relationship Specialty Start Date End Date Sandra Ko MD [address] [place] [address] PCP - General Internal Medicine 01/17/24 Sandra Ko MD [address] [place] [address] 01/17/24 Miscellaneous, Not In File 05/29/22 Jc Almaguer DO [address] [place] [address] Consulting Physician Neurosurgery 05/29/22
--- OUTSIDE RECORDS SUMMARY | 2025-01-08 09:27 | XMS_ITS | Referral Summary ---
Author Organization [facility] [address] [facility] Address [address] [place] [address] Care Team Providers Care Equine Intern Name Role Phone Sandra Ko MD Primary Care Provider [phone] Sandra Ko MD Unavailable [phone] Miscellaneous, Not In File Unavailable Unava ilable Jc Almaguer DO Unavailable [phone] Allergies Active Allergy Reactions Criticality Noted [...] per tablet/capsule Take 1 tablet/capsule by mouth leather stitcher before breakfast Active metoprolol XL (TOPROL-XL) 25 [...] (06/18/2022): Added automatically from request for surgery [id number] Carpal tunnel syndrome 06/17/2022 Current tear of [...] on file Legal Sex Female 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 Testing performed by: [facility], [address] [place] [phone] Blood 01/25/2024 10:5 6 AM CDT 01/25/2024 11:05 AM CDT us Carol Traore MD LAB BLOOD ORDERABLES Final R esult Performing Organization Address City/State/[facility] Co de Phone Number [facility] [place] [address] * Hepatitis C antibody Blood (01/25/2024 10:56 AM CDT) [facility] Hep C Ab Nonreactive Nonreactive Comment:Antibodies to HCV no t detected. Does NOT exclude the possibility of recent exposure to HCV. Current interpretive data was last revised on 22 Blood 01/25/2024 10:5 6 AM CDT 01/25/2024 11:16 AM CDT Carol Traore MD LAB MICROBIOLOGY - GENERAL O RDERABLES Final Result Performing Organization Address [facility] [place] [address] * (ABNORMAL) POCT hemoglobin A1c (06/29/2022 11:33 AM SANDWICH ARTIST) [facility] Hgb A1C, POC 7.7(H) 4.0 - 5.6 % [facility] Est Average Gluc POC 174 mg/dL [facility] Comment: The ADA recommends reporting an estimated Average Glucose (eAG) with all Hemoglobin A1c results using the equation derived from a study of 507 normal and diabetic adults. Minority populations were underrepresented and children were not included. (Diabetes Care 31:9315-4745, 2008). The eAG is not equivalent to a fasting glucose. Blood 06/29/2022 11:3 3 AM SANDWICH ARTIST 06/29/2022 11:33 AM SANDWICH ARTIST Jc Almaguer DO POINT OF CARE TEST ORDERABLES F inal Result Performing Organization Address [facility] Co de Phone Number [facility] [place] [address] * (ABNORMAL) Lipid panel (05/24/2022 4:48 PM SANDWICH ARTIST) [facility] Cholesterol 239(H) 30 - 199 mg/dL [facility] Comment: Interpretive Data Ages < [...] revised on 2018. Triglycerides 74 <=149 mg/dL [facility] Comment: Interpretive Data Ages < [...] revised on 2018. HDL 78 >=40 mg/dL [facility] Comment: Interpretive Data Ages < [...] on 2018. LDL, calculated 146(H) <=129 mg/dL [facility] Comment: Interpretive Data Ages < [...] revised on 2018. Non-HDL Cholesterol 161 mg/dL [facility] Comment: Interpretive Data Ages < or [...] last revised on 2018. Chol/HDL ratio 3 [facility] Blood 05/24/2022 4:48 PM SANDWICH ARTIST 05/24/2022 5:07 PM SANDWICH ARTIST Meme Hoskins MD LAB BLOOD ORDERABLES Irena iqbal Result [facility] Department [place] [address] from Last 3 Months or Most Recently Relevant to Health Maintenance Insurance [facility] BLUE ACC CHOICE OOS [facility] [place] BLUE ACC CHOICE OOS Care Teams Equine Intern Relationship Specialty Start Date End Date Sandra Ko MD [address] [place] [address] PCP - General Internal Medicine 01/17/24 Sandra Ko MD [address] [place] [address] 01/17/24 Miscellaneous, Not In File 05/29/22 Jc Almaguer DO [address] [place] [address] Consulting Physician Neurosurgery 05/29/22
--- OUTSIDE RECORDS SUMMARY | 2025-01-08 09:27 | XMS_ITS | Encounter Summary ---
Author Organization [facility] Address [address] [place] [address] Phone Care Team Providers Care Freight Booker Name Role Phone Sandra Ko MD Primary Care Provider + [phone] Sandra Ko MD Primary Care Provider + [phone] Sandra Ko MD Unavailable [phone] Miscellaneous, Not In File Unavailable Unava ilable Jc Almaguer DO Unavailable [phone] Encounter Details Date Type Department Care Team (Latest Contact Info) Description 02/23/2019 Orders Only [facility] Scanning, Provider Social History Tobacco Use Types Packs/Day Years Used Date Smoking Tobacco: Never Assessed Comments Unknown Sex and Gender Information Value Date Recorded Sex Assigned at Not on file 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
--- OUTSIDE RECORDS SUMMARY | 2025-01-08 09:27 | XMS_ITS | Encounter Summary ---
Author Organization [facility] Address [address] [place] [address] Phone Care Team Providers Care Torpedo Worker Name Role Phone Sandra Ko MD Primary Care Provider [phone] Sandra Ko MD Unavailable [phone] Miscellaneous, Not In File Unavailable Unava ilable Jc Almaguer DO Unavailable [phone] Encounter Details Date Type Department Care [...] on file Legal Sex Female 5:38 AM STITCHER HAND Gender Identity Female 02/05/2020 11:58 AM CDT [...] on filedocumented in this encounter Care Teams Torpedo Worker Relationship Specialty Start Date End Date Sandra Ko MD [address] [place] [address] PCP - General Internal Medicine 01/17/24 Sandra Ko MD [address] [place] [address] 01/17/24 Miscellaneous, Not In File 05/29/22 Jc Almaguer DO [address] [place] [address] Consulting Physician Neurosurgery 05/29/22 documented as of this encounter
--- OUTSIDE RECORDS SUMMARY | 2025-01-08 09:27 | XMS_ITS | Encounter Summary ---
Author Organization [facility] Address [address] [place] [address] Phone Care Team Providers Care Automotive Refinish Technician Name Role Phone Sandra Ko MD Primary Care Provider + [phone] Sandra Ko MD Primary Care Provider + [phone] Sandra Ko MD Unavailable [phone] Miscellaneous, Not In File Unavailable Unava ilable KarolynJc orourke Unavailable [phone] Encounter Details Date Type Department Care Team (Late st Contact Info) Description 08/14/2019 Telephone [facility] Cardiology [address] [facility] Advanced Medicine [address] [place] [address] [place] [address] Lisa Solo, [facility] Social History Tobacco Use Types Packs/Day Years Used Date Smoking Tobacco: Never Assessed Comments Unknown Sex and Gender Information Value Date Recorded Sex Assigned at Not on file 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
[2025-01-08 09:38] LABS: Hematocrit 43.4 % (35.0-49.0); Hemoglobin 14.3 g/dL (12.0-15.0); Mean Corpuscular HGB Conc 32.9 g/dL (32-36); Mean Corpuscular Hemoglobin 30.7 pg (27.0-31.0); Mean Corpuscular Volume 93.1 fL (78.0-102.0); Platelet Count Result 286 K/mm3 (150-420); Red Blood Count 4.66 M/mm3 (4.20-5.40); White Blood Count 2.6 K/mm3 (4.8-10.8)
[2025-01-08 09:39] LABS: Add Urine Microscopic? NO; Appearance Urine Clear (Clear); Glucose Urine UA Negative (Negative); Leukocyte Esterase Ur Negative (Negative); Nitrate Urine Negative (Negative); Specific Grav Ur 1.010 (1.010-1.020)
[2025-01-08 09:51] LABS: Hemoglobin A1C 7.6 % (<5.7)
[2025-01-08 10:09] LABS: MALB Creatinine Ratio 7.0 mg/g (0-30)
[2025-01-08 10:14] LABS: Alanine Aminotransferase 17 U/L (6-35); Albumin Level 4.7 g/dL (3.5-5.1); Alkaline Phosphatase 90 U/L (38-126); Anion Gap 6 mmol/L (4-12); Aspartate Amino Transferase 29 U/L (14-36); Bilirubin,Total 0.7 mg/dL (0.2-1.3); Blood Urea Nitrogen 7 mg/dL (7-17); Calcium 10.0 mg/dL (8.4-10.2); Carbon Dioxide 28 mmol/L (22-30); Chloride 105 mmol/L (98-107); Cholesterol 221 mg/dL (0-200); Estimated Glomerular Filt Rate > 60; Glucose 103 mg/dL (65-110); HDL Direct 67 mg/dL; Iron 81 ug/dL (37-170); Osmolality Calculated 286 mOsm/kg (285-295); Potassium 3.6 mmol/L (3.4-5.0); Sodium 139 mmol/L (137-145); Total Protein 7.2 g/dL (6.3-8.2); Triglycerides 54 mg/dL (<150)
[2025-01-08 10:31] LABS: Free T4 Free Thyroxine 1.02 ng/dL (0.78-2.19)
[2025-01-08 10:32] LABS: Free T3 4.21 pg/mL (2.18-3.98)
[2025-01-08 10:45] LABS: Thyroid Stimulating Hormone 1.620 uIU/mL (0.465-4.680)
[2025-01-08 10:49] LABS: Ferritin 111.00 ng/mL (11.1-264)
[2025-01-08 11:04] LABS: Vitamin B12 375.0 pg/mL (239-931)
[2025-01-09 12:08] LABS: Folate, Hemolysate 506.0 ng/mL (Not Estab.); Folate, RBC 1158 ng/mL (>498); Hematocrit 43.7 % (34.0-46.6)
== END 2025-01-08 09:06 | disposition home or self-care (01) ==
LOC: CHSLAB 09:10
PROVIDERS: PCP Internal Medicine; Visit Provider Internal Medicine
DX: I10 Essential (primary) hypertension (principal); E78.2 Mixed hyperlipidemia; E10.65 Type 1 diabetes mellitus with hyperglycemia; D70.9 Neutropenia, unspecified; J32.8 Other chronic sinusitis
CPT/HCPCS: 36415; 80053; 80061; 81003; 82043; 82607; 82728; 82747; 83036; 83540; 84439; 84443; 84481; 85027

== ENCOUNTER 2025-05-29 20:52 | Emergency (ER) | payer BC, SELFPAY ==
[2025-05-29 20:52] VITALS: BP 165/96; PULSE 87; RESP 18; TEMP 36.4; O2SAT 97
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
--- OUTSIDE RECORDS SUMMARY | 2025-05-29 20:54 | XMS_ITS | Data Portability ---
Author Organization [place] [facility], Main Office Address [address] [place] [address] Care Team Providers Care Axle Turner Name Role Phone MADY STODDARD Primary Care Provider [phone] MADY STODDARD Referring Provider [phone] Assessment Encounter Date Assessment Date Assessment LastModified [...] more than half the time spent in fytv-ss-thsq care. [email or web address] Not available 10/31/2022 10:53:45 12/15/2022 [...] hand 023 10/30/19 23 [email or web address] [facility] [place], [facility] [facility] [address], [place], [address], 10:00:35 Medication Orders None record ed. Patient TargetsNo targets recorded. Patient InstructionsNo instructions recorded. Reason for Referral None Reported. Results Created Date Observation Date Name Description Value Unit Range Abnormal Flag Note LastModifiedBy Organization Detail LastModifiedTime 01/01/2001/01/2021 TSH TSH 1.33 mIU/L normal Refer ence Range > or = 20 Years 0.40- 4.50 Pregn shivam Range s First trime ster 0.26- 2.66 Secon d trime ster 0.55- 2.73 Third trime ster 0.43- 2.91 Not Available [facility] [address] [place] [address], [address], 01/01/2021 06:39:17 01/01/20 21 01/01/2021 TSH copy(ies) sent to: CARLOS [place] [address] Not Available [employer] [facility] [address] [facility] [place], [address], 01/01/2021 06:39:17 03/27/20 21 03/27/2021 MAMMO , diagn ostic , digit al, unila teral No observ ation record ed. [id number] [facility]) [address] [facility], [place], [address], 08/04/2022 08:13:51 10/30/19 23 XR, hand No observ ation record ed. [email or web address] [facility] [place] [address], [place], [address], 10/31/2022 10:50:24 11/27/1905/24/2022 elect lala jenkins am No observ ation record ed. [email or web address] Not Available 2022 12:42:57 Result Notes None recorded. Problems Name Problem SNOMED Code Status Onset Date Resolution Date Notes Provider Name and Address Organization Details Recorded Time Enlarged uterus 897416529 Active Not Available [facility] 3 08:08:59 Right lower quadrant pain 963687691 Active Not Available [facility] 3 08:08:59 Current tear of medial cartilage AND/OR meniscus of knee Active Not Available [facility] 3 08:08:59 Pain of hip region 81296344 Active Not Available [facility] 3 08:08:59 Carpal tunnel syndrome 14216094 Active Not Available [facility] 3 08:08:59 Cyst of ovary 70779264 Active Not Available [facility] 3 08:08:59 Pain of left hand 5595041096528 03 Active 2022 PRETTY Lew, [facility] [email or web address] [facility] 3 09:32:02 Bilateral carpal tunnel syndrome 4282848144385 9101 Active 2022 PRETTY Lew [facility] [email or web address] [facility] 3 10:06:38 Problem Notes None recorded. Procedures Surgical History Date Name Laterality Status Provider Name and Address Organization Details Recorded Time 1 Most Recent Mammogram completed Not Available [facility] 08/04/2022 08:05:58 0 MANUFACTURING DIRECTOR Procedure completed Not Available [facility] 2022 08:06:00 9 Date of Last Pap Smear completed Not Available [facility] 08/04/2022 08:05:58 7 Back Surgery completed Not Available [facility] 023 08:06:00 5 MANUFACTURING DIRECTOR Surgery completed Not Available [facility] 08/05/19 23 08:06:00 3 Carpal tunnel surgery completed Not Available [facility] 08/04/2022 08:06:00 Cyst Removal [facility]20[facility] 08:06:00 MANUFACTURING DIRECTOR Procedure completed Not Available [facility] th 08/04/2022 08:06:00 delivery completed Not Available [facility] 08/04/2022 08:06:00 other completed Not Available [facility] 06/2022 08:06:00 Imaging Results None recorded. Procedure Notes None recorded. Medical Equipment None Reported. Allergies Allergen ID Allergen Name Allergen Category Reaction Reaction Severity Criticality Documentation Date Start Date Code Code System Note Provider Name and Address Organization Details Recorded Time tizanidin e medicatio n other Not available Not available 08/04/2022 57887 RxNorm bp dropp ed, turne d yello w Not Available [facility] 3 08:13:46 Product containin g penicilli n (product) medicatio n itching Not available Not available 08/04/2022 38900 8001 SNOMED vomit ing Not Available [facility] 3 08:13:46 Non-stero idal anti-infl ammatory agent (substanc e) medicatio n respirato ry distress Not available Not available 08/04/2022 65710 5008 SNOMED Not Available [facility] 3 08:13:46 adhesive environme nt,medica tion rash Not available Not available 08/04/2022 Not Available [facility] 3 08:13:46 Medications Name Sig Start Date [...] Not Available Not Available Not Available Transderm-S copper miner 1 mg over 3 days transdermal patch [...] glargine-yf gn (U-100) 100 unit/mL (3 mL) subcutane s pen active Not Available Not Available Not Available Vitals Date Recorded Body height Body mass index (BMI) Body weight Provider Name and Address Organization Details Last Updated DateTime 10/29/2022 170.18 cm 25.7 kg/m2 48946.15 g Esthela Glez [facility] [employer] 10/29/2022 09:35:01 Date Recorded Body height Provider Name an d Address Organization Details Last Updated DateTime 12/15/2022 170.18 cm Esthela Glez [facility] [employer] 12/15/2022 10:04:38 Date Recorded Body mass index (BMI) Body height Body weight Systolic And Diastolic Provider Name and Address Organization Details Last Updated DateTime 12/31/2020 25.7 kg/m2 173.36 cm 00832.7 g 116/80 mm[Hg] Not Available [facility] 08/04/2022 08:06:58 Social History Question Answer Notes LastModified by Organizat ion Details LastModified Time Tobacco Smoking Status Never Smoker Not Available [facility] 08/04/2022 08:05:46 Has Tobacco Cessation Counseling Been Provided? No [id number] Information not available 08/04/2022 Sex: Unknown Functional Status Question Answer Note LastModified by Organizat ion Details LastModified Time Do you use any illicit or recreational drugs? No [id number] Information not available 08/04/2022 Do you or have you ever used any other forms of tobacco or nicotine? No [id number] Information not available 08/04/2022 What is your exercise level? Moderate [id number] Information not available 08/04/2022 Mental Status None recorded. Family History Relationship Description Onset Age of this Age Resolved Age Notes LastModified by Organization Details LastModified Time Father Heart disease [id number] Not available 08/04/2022 08:06:01 Mother Harmful pattern of use of alcohol [id number] Not available 08/04/2022 08:06:01 Father Diabetes mellitus [email or web address] Not available 2022 09:31:11 Maternal Grandfather Diabetes mellitus [email or web address] Not available 2022 09:31:11 Medical History Condition [...] 50 mcg/0.25mL dose 09/05/2020 completed Not Available [facility] 3 08:13:38 COVID-19, mRNA, LNP-S, PF, 100 mcg/0.5mL dose or 50 mcg/0.25mL dose 08/04/2020 completed Not Available [facility] 3 08:13:38 Past Encounters Encounter ID Performer Location Encounter Start Date Encounter Closed Date Diagnosis/Indication Diagnosis SNOMED-CT Code Diagnosis ICD10 Code Diagnosis IMO Codes Diagnosis Note [id number] [facility] _[facility]HENA_ IGRATION_ DEFAULT_1 _1 , 12/31/2020 00:00:00 12/31/2020 11:16:50 [id number] Rodrigo Pastrana MD [facility] [place] [address] [place] [id number] 10/29/2022 09:08:38 11/02/2022 10:00:35 Pain of left hand 1315857629 65772 M79.642 [id number] Rodrigo Pastrana MD [facility] [place] [address] [place] [id number] 12/15/2022 09:58:28 12/15/2022 11:59:41 Bilateral carpal tunnel syndrome 0773155268 7448489 G56.02 Health Concerns Section Related Observation LastModified by Organization Detai ls LastModified Time None Recorded Concern Status LastModified by Organization Details LastModified Time None Recorded Advance Directives Directive None Recorded Payers Insurance Date Sequence Insurance Name Policy Number Policy Bella Covered Member ID Bella Member ID Guarantor Name 02/25/2023 1 [place] [id number] Lakia Yu [id number] Lakia Yu Notes Date Note Type Note Provider Name [...] surgery at that same level was in 2016. The Patient has diabetes and last hemoglobin A1c is down to 5.7. It was 9.1 at the beginning of the year. She is on insulin. Patient has history of anaphylactic reaction to nonsteroidal anti-inflammatory medications. Rash with penicillin. Rodrigo Pastrana MD [address] [facility], [facility] [address], [place], [address], [facility] 10/31/2022 10:53:52 OBGyn Episode No OBEpisode recorded.
--- OUTSIDE RECORDS SUMMARY | 2025-05-29 20:54 | XMS_ITS | Encounter Summary ---
Author Organization [facility] Address [address] [place] [address] Phone Care Team Providers Care Diathermy Equipment Repairer Name Role Phone Sandra Ko MD Primary Care Provider + [phone] Sandra Ko MD Primary Care Provider + [phone] Sandra Ko MD Unavailable [phone] Miscellaneous, Not In File Unavailable Unava ilable KarolynJc orourke Unavailable [phone] Encounter Details Date Type Department Care Team (Late st Contact Info) Description 08/14/2019 Telephone [facility] Cardiology [address] [facility] [address] [place] [address] [place] [address] Lisa Solo, [facility] Social History Tobacco Use Types Packs/Day Years Used Date Smoking Tobacco: Never Assessed Comments Unknown Sex and Gender Information Value Date Recorded Sex Assigned at Not on file 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
--- OUTSIDE RECORDS SUMMARY | 2025-05-29 20:54 | XMS_ITS | Encounter Summary ---
Author Organization [facility] Address [address] [place] [address] Phone Care Team Providers Care Document Coordinator Name Role Phone Sandra Ko MD Primary Care Provider + [phone] Sandra Ko MD Primary Care Provider + [phone] Sandra Ko MD Unavailable [phone] Miscellaneous, Not In File Unavailable Unava ilable Jc Almaguer DO Unavailable [phone] Encounter Details Date Type Department Care Team (Latest Contact Info) Description 07/25/2019 Orders Only [facility] Scanning, Provider Social History Tobacco Use Types Packs/Day Years Used Date Smoking Tobacco: Never Assessed Comments Unknown Sex and Gender Information Value Date Recorded Sex Assigned at Not on file 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
--- OUTSIDE RECORDS SUMMARY | 2025-05-29 20:54 | XMS_ITS | Encounter Summary ---
Author Organization [facility] Address [address] [place] [address] Phone Care Team Providers Care Strip Cutting Machine Operator Name Role Phone Sandra Ko MD Primary Care Provider [phone] Sandra Ko MD Unavailable [phone] Miscellaneous, Not In File Unavailable Unava ilable Jc Almaguer DO Unavailable [phone] Encounter Details Date Type Department Care [...] on file Legal Sex Female 5:38 AM OCCUPATIONAL THERAPY ASST Gender Identity Female 02/05/2020 11:58 AM CDT [...] on filedocumented in this encounter Care Teams Strip Cutting Machine Operator Relationship Specialty Start Date End Date Sandra Ko MD [address] [place] [address] PCP - General Internal Medicine 01/17/24 Sandra oK MD [address] [place] [address] 01/17/24 Miscellaneous, Not In File 05/29/22 Jc Almaguer DO [address] [place] [address] Consulting Physician Neurosurgery 05/29/22 documented as of this encounter
--- OUTSIDE RECORDS SUMMARY | 2025-05-29 20:54 | XMS_ITS | Clinical Summary ---
Author Organization [facility] [[email or web address]] [address] Address [address] [place] [address] Care Team Providers Care Financial Services Professional Name Role Phone Sandra Ko MD Primary Care Provider [phone] Sandra Ko MD Unavailable [phone] Miscellaneous, Not In File Unavailable Unava ilable Jc Almaguer DO Unavailable [phone] Allergies Active Allergy Reactions Criticality Noted [...] per tablet/capsule Take 1 tablet/capsule by mouth can solderer before breakfast Active metoprolol XL (TOPROL-XL) 25 [...] (06/18/2022): Added automatically from request for surgery [id number] Carpal tunnel syndrome 06/17/2022 Current tear of [...] on file Legal Sex Female 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 Gender Identity Female 02/05/2020 11:58 AM CDT [...] 18-64 02/17/1986 Zoster Vaccine (1 of 2) 02/17/2018 DTaP/Tdap/Td Vaccine (2 - Td or Tdap) 08/04/2022 08/04/2012 Hemoglobin A1C 12/27/2022 06/29/2022, 05/25/2022 Lipid Panel 05/24/2023 05/24/2022, 01/05/2016 Pneumococcal vaccine <65 (3 of 3 - PCV20 or PCV21) 07/19/2023 07/19/2018, 12/20/2017, 05/06/2010 eGFR 01/24/2025 01/25/2024, 06/07, 05/28/2022, Additional history exists Covid-19 Vaccine (3 - 2024-2 6 season) 2025 09/05/2020, 08/04/2020 Influenza Vaccine (#1) 2025 7, 05/06/2017, 04/06/2016 Hepatitis C Screening Completed 01/25/2024 Procedures Procedure Name Priority Date/Time Associated Diagnosis Comments HEPATITIS C ANTIBODY Routine 01/25/2024 10:56 AM CDT Neutropenia, unspecified type EGFR Routine 01/25/2024 10:56 AM CDT Neutropenia, unspecified type POCT HEMOGLOBIN A1C Routine 06/29/2022 1 1:33 AM BEAD STRINGER LIPID PANEL STAT 05/24/2022 4:48 PM BEAD STRINGER from Last 3 Months or Most Recently [...] was last reviewed 2021. Testing performed by: [facility], [address] [place] [id number] Blood 01/25/2024 10:5 6 AM CDT 01/25/2024 11:05 AM CDT us Carol Traore MD LAB BLOOD ORDERABLES Final R esult Performing Organization Address [facility] Co de Phone Number [facility] [place] [address] * Hepatitis C antibody Blood (01/25/2024 10:56 AM CDT) [facility] Hep C Ab Nonreactive Nonreactive Comment:Antibodies to HCV no t detected. Does NOT exclude the possibility of recent exposure to HCV. Current interpretive data was last revised on 22 Blood 01/25/2024 10:5 6 AM CDT 01/25/2024 11:16 AM CDT Carol Traore MD LAB MICROBIOLOGY - GENERAL O RDERABLES Final Result Performing Organization Address [facility] [place] [address] * (ABNORMAL) POCT hemoglobin A1c (06/29/2022 11:33 AM BEAD STRINGER) [facility] Hgb A1C, POC 7.7(H) 4.0 - 5.6 % [facility] Est Average Gluc POC 174 mg/dL [facility] Comment: The ADA recommends reporting an estimated Average Glucose (eAG) with all Hemoglobin A1c results using the equation derived from a study of 507 normal and diabetic adults. Minority populations were underrepresented and children were not included. (Diabetes Care 31:3548-9245, 2008). The eAG is not equivalent to a fasting glucose. Blood 06/29/2022 11:3 3 AM BEAD STRINGER 06/29/2022 11:33 AM BEAD STRINGER Jc Almaguer DO POINT OF CARE TEST ORDERABLES F inal Result Performing Organization Address [facility] Co de Phone Number [facility] [place] [address] * (ABNORMAL) Lipid panel (05/24/2022 4:48 PM BEAD STRINGER) Cholesterol 239(H) 30 - 199 mg/dL [facility] Comment: Interpretive Data Ages < or [...] revised on 2018. Triglycerides 74 <=149 mg/dL [facility] Comment: Interpretive Data Ages < or [...] revised on 2018. HDL 78 >=40 mg/dL [facility] Comment: Interpretive Data Ages < or [...] on 2018. LDL, calculated 146(H) <=129 mg/dL [facility] Comment: Interpretive Data Ages < or [...] revised on 2018. Non-HDL Cholesterol 161 mg/dL [facility] Comment: Interpretive Data Ages < or [...] last revised on 2018. Chol/HDL ratio 3 [facility] Blood 05/24/2022 4:48 PM BEAD STRINGER 05/24/2022 5:07 PM BEAD STRINGER Meme Hoskins MD LAB BLOOD ORDERABLES Irena iqbal Result [facility] [place] [address] from Last 3 Months or Most Recently Relevant to Health Maintenance Insurance [facility] BLUE ACC CHOICE OOS [employer] [facility] [place]UE ACC CHOICE OOS Care Teams Financial Services Professional Relationship Specialty Start Date End Date Sandra Ko MD [address] [place] [address] PCP - General Internal Medicine 01/17/24 Sandra Ko MD [address] [place] [address] 01/17/24 Miscellaneous, Not In File 05/29/22 Jc Almaguer DO [address] [place] [address] Consulting Physician Neurosurgery 05/29/22
--- OUTSIDE RECORDS SUMMARY | 2025-05-29 20:54 | XMS_ITS | Encounter Summary ---
Author Organization [facility] Address [address] [place] [address] Phone Care Team Providers Care Vacuum Form Operator Name Role Phone Sandra Ko MD Primary Care Provider + [phone] Sandra Ko MD Primary Care Provider + [phone] Sandra oK MD Unavailable [phone] Miscellaneous, Not In File Unavailable Unava ilable Jc Almaguer DO Unavailable [phone] Encounter Details Date Type Department Care Team (Latest Contact Info) Description 02/23/2019 Orders Only [facility] Scanning, Provider Social History Tobacco Use Types Packs/Day Years Used Date Smoking Tobacco: Never Assessed Comments Unknown Sex and Gender Information Value Date Recorded Sex Assigned at Not on file Legal Sex Female 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
[2025-05-29] MEDS: TETRACAINE HCL 0.5% OPHTH SOLN 4 ML BTL 1 DROP EACH EYE (21:00)
--- NOTE | 2025-05-29 21:07 | PC.NURSE ---
DR DUNCAN AT THE BEDSIDE
[2025-05-29] MEDS: DACRIOSE EYE IRRIGATION 118 ML BOTTLE 100 ML LEFT EYE (21:14)
--- OUTSIDE RECORDS SUMMARY | 2025-05-29 21:15 | XMS_ITS | Encounter Summary ---
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
--- OUTSIDE RECORDS SUMMARY | 2025-05-29 21:15 | XMS_ITS | Encounter Summary ---
Author Organization [facility] Address [address] [place] [address] Phone Care Team Providers Care Buildings And Grounds Coordinator Name Role Phone Sandra Ko MD Primary Care Provider + [phone] Sandra Ko MD Primary Care Provider + [phone] Sandra Ko MD Unavailable [phone] Miscellaneous, Not In File Unavailable Unava ilable KarolynJc orourke Unavailable [phone] Encounter Details Date Type Department Care Team (Late st Contact Info) Description 08/14/2019 Telephone 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
--- OUTSIDE RECORDS SUMMARY | 2025-05-29 21:15 | XMS_ITS | Encounter Summary ---
Author Organization [facility] Address [address] [place] [address] Phone Care Team Providers Care Slurry Control Tender Name Role Phone Sandra Ko MD Primary Care Provider + [phone] Sandra Ko MD Primary Care Provider + [phone] Sandra Ko MD Unavailable [phone] Miscellaneous, Not In File Unavailable Unava ilable Jc Almaguer DO Unavailable [phone] Encounter Details Date Type Department Care Team (Latest Contact Info) Description 02/23/2019 Orders Only [facility] Scanning, Provider Social History Tobacco Use Types Packs/Day Years Used Date Smoking Tobacco: Never Assessed Comments Unknown Sex and Gender Information Value Date Recorded Sex Assigned at Not on file Legal Sex Female 5: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
--- OUTSIDE RECORDS SUMMARY | 2025-05-29 21:15 | XMS_ITS | Encounter Summary ---
Author Organization [facility] Address [address] [place] [address] Phone Care Team Providers Care Auto Parts Salesperson Name Role Phone Sandra Ko MD Primary Care Provider + [phone] Sandra Ko MD Primary Care Provider + [phone] Sandra Ko MD Unavailable [phone] Miscellaneous, Not In File Unavailable Unava ilable Jc Almaguer DO Unavailable [phone] Encounter Details Date Type Department Care Team (Latest Contact Info) Description 07/25/2019 Orders Only [facility] Scanning, Provider Social History Tobacco Use Types Packs/Day Years Used Date Smoking Tobacco: Never Assessed Comments Unknown Sex and Gender Information Value Date Recorded Sex Assigned at Not on file 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
[2025-05-29] MEDS: NEOMYCIN/POLYMYXIN/DEXAMETH OP SUSP 5 ML BTL 2 DROP LEFT EYE (21:16)
[2025-05-29 21:32] VITALS: BP 148/89; PULSE 85; RESP 18; TEMP 36.7; O2SAT 99
== END 2025-05-29 21:34 | disposition home or self-care (01) ==
PROVIDERS: Emergency Provider Emergency Medicine; PCP Internal Medicine
DX: S05.8X2A Other injuries of left eye and orbit, initial encounter (principal); T15.92XA Foreign body on external eye, part unspecified, left eye, initial encounter; I10 Essential (primary) hypertension; E11.9 Type 2 diabetes mellitus without complications; Z86.73 Personal history of transient ischemic attack (TIA), and cerebral infarction without residual deficits; W20.8XXA Other cause of strike by thrown, projected or falling object, initial encounter
CPT/HCPCS: 65205; 99283; A9270